=== PATIENT | female | born 1970 | race Caucasian/White ===

== ENCOUNTER 2020-04-29 00:18 | Emergency (ER) | payer BC, SELFPAY ==
--- NOTE | ~2020-04-29 | XR_ITS ---
EXAMINATION: XR chest 1V portable INDICATION: Fever and shortness of breath TECHNIQUE: Portable AP chest at 0136 hours COMPARISON: 03/19/2019 FINDINGS: There are minimal airspace opacities in the right lung base. No pleural effusion or pneumot horax is identified. The cardiomediastinal silhouette is normal. IMPRESSION: 1. Minimal right basilar airspace opacity, consistent with atelectasis versus pneumonia. Reviewed, dictated and finalized at location A. IMPRESSION: 1. Minimal right basilar airspace opacity, consistent with atelectasis versus p neumonia.
[2020-04-29 00:24] VITALS: BP 125/65; PULSE 91; RESP 24; TEMP 38.6; O2SAT 94
[2020-04-29 00:45] VITALS: RESP 26
[2020-04-29 01:52] LABS: Basophils Percent Auto 0.3 % (0.2-1.2); Hematocrit 39.1 % (37.0-47.0); Hemoglobin 13.3 g/dL (12.0-15.0); Immature Granulocyte Absolute 0.03 K/mm3 (0.00-0.031); Immature Granulocyte Percent A 0.4 % (0-0.5); Lymphocytes Percent Auto 16.6 % (18.3-44.2); Mean Corpuscular Hemoglobin 31.9 pg (26-34); Mean Corpuscular Volume 93.8 fl (80-100); Mean Platelet Volume 8.9 fl (7.4-10.4); Monocytes Absolute Auto 0.4 K/mm3 (0.1-0.6); Monocytes Percent Auto 5.8 % (2.6-8.5); Neutrophils Absolute Auto 5.6 K/mm3 (1.3-6.7); Neutrophils Percent Auto 76.9 % (45.5-73.1); Platelet Count Result 139 k/mm3 (150-375); Red Blood Count 4.17 M/mm3 (4.2-5.4); Red Cell Distribution Width 13.2 % (11.5-14.5); White Blood Count 7.3 K/mm3 (4.5-10.0)
[2020-04-29 02:04] LABS: Alanine Aminotransferase 28 U/L (4-35); Albumin Level 3.7 g/dL (3.5-5.1); Alkaline Phosphatase 89 U/L (38-126); Anion Gap 11 mmol/L (8-16); Aspartate Amino Transferase 30 U/L (14-36); Bilirubin,Total 0.5 mg/dL (0.2-1.3); Blood Urea Nitrogen 18 mg/dL (7-17); Calcium 8.9 mg/dL (8.4-10.2); Carbon Dioxide 25 mmol/L (22-30); Chloride 104 mmol/L (98-107); Estimated CRCL calculation 91 ml/min; Estimated Glomerular Filt Rate > 60; Glucose 216 mg/dL (65-105); Potassium 3.6 mmol/L (3.4-5.0); Sodium 140 mmol/L (137-145)
--- NOTE | 2020-04-29 02:36 | ED.FEVER ---
HPI - Fever General Chief Complaint: Fever Stated Complaint: sob, fever Time Seen by Provider: 04/29/20 01:00 History of Present Illness HPI Narrative: Patient is a 50-year-old female who presents the ER with fever and shortness of breath. Patient reports over the last 4 days she has been running a fever and has been short of breath. Associate with a dry nonproductive cough. No runny nose/sore throat. No known sick contacts. Scheduled to receive a Covid swab in the morning. She without nausea/vomiting. She has been using a nebulizer with mild improvement. Related Data Home Medications Medication Instructions Recorded Confirmed aspirin 81 mg tablet,delayed 81 mg PO DAILY 07/23/19 01/07/20 release cholecalciferol (vitamin D3) 50 2,000 unit PO DAILY cap 07/23/19 01/07/20 mcg (2,000 unit) capsule formoterol fumarate 20 mcg/2 mL 2 ml INHALATION BID 07/23/19 01/07/20 solution for nebulization magnesium 30 mg tablet 30 mg PO DAILY 07/23/19 01/07/20 omega-3 fatty acids 1,000 mg 1,000 mg PO DAILY 07/23/19 01/07/20 capsule potassium gluconate 595 mg (99 mg) 595 mg PO DAILY 07/23/19 01/07/20 tablet Allergies Allergy/AdvReac Type Severity Reaction Status Date / Time No Known Allergies Allergy Unknown NONE Unverified 04/29/20 00:21 Review of Systems Review of Systems: All systems reviewed & are unremarkable except as noted in HPI and below Constitutional: Constitutional: Reports chills, Reports fatigue and Reports fever(s) ENT: Denies nasal congestion and Denies sore throat Cardiovascular: Cardiovascular: Denies chest pain and Denies radiating jaw, neck or arm pain Respiratory: Respiratory: Reports cough, Reports dyspnea and Denies wheezing Gastrointestinal: Gastrointestinal: Denies abdominal pain, Denies nausea and Denies vomiting [facility] Past Medical History Medical History (Updated 04/29/20 @ 02:41 by Silvano Clakr MD) COPD (chronic obstructive pulmonary disease) Family History Family History Father Family history of alcoholism, Onset Age: 37 Mother Patient's mother is in good health Social History Social History Smoking status: Heavy tobacco smoker Alcohol intake: never Gender identity (if verbalized by the patient): Female Exam Narrative: Exam Narrative: GENERAL: Well-appearing, well-nourished, and in no acute distress. HEAD: Normocephalic, atraumatic. CHEST: Clear to auscultation. No respiratory distress. HEART: Regular rate and rhythm. Normal peripheral pulses. EXTREMITIES: Normal range of motion. No edema. SKIN: Warm, dry, no rash. NEURO: Alert and oriented x3. PSYCH: Normal mood and affect. Course STRUCTURER/PA Physician Supervision Chest x-ray suspicious for pneumonia right lower lobe. Discharge with [facility]. Covid swab here. Vital Signs Vital signs: Vital Signs Temperature 101.5 F H 04/29/20 00:24 Pulse Rate 91 04/29/20 00:24 Respiratory Rate 24 H 04/29/20 00:24 Blood Pressure 125/65 04/29/20 00:24 Pulse Oximetry 94 04/29/20 00:24 Temperature 101.5 F H 04/29/20 00:24 Pulse Rate 91 04/29/20 00:24 Respiratory Rate 24 H 04/29/20 00:24 Blood Pressure 125/65 04/29/20 00:24 Pulse Oximetry 94 04/29/20 00:24 MDM - Fever Lab Data Result diagrams: 04/29/20 01:44 04/29/20 01:44 Labs: Lab Results 04/29/20 04/29/20 04/29/20 Range/Units 01:44 01:44 01:44 WBC 7.3 (4.5-10.0) K/mm3 RBC 4.17 L (4.2-5.4) M/mm3 Hgb 13.3 (12.0-15.0) g/dL Hct 39.1 (37.0-47.0) % MCV 93.8 (80-100) fl MCH 31.9 (26-34) pg MCHC 34.0 (32-36) g/dl RDW 13.2 (11.5-14.5) % Plt Count 139 L (150-375) k/mm3 MPV 8.9 (7.4-10.4) fl Immature Gran % (Auto) 0.4 (0-0.5) % Neut % (Auto) 76.9 H (45.5-73.1) % Lymph % (Auto) 16.6 L (18.3-44.2) % [place] % (Auto) 5.8
[2020-04-29 02:50] VITALS: BP 129/66; PULSE 90; RESP 22; TEMP 37.9; O2SAT 94
[2020-04-29 15:24] LABS: SARS-CoV-2 RNA PCR Negative
== END 2020-04-29 02:50 | disposition home or self-care (01) ==
PROVIDERS: Emergency Provider Emergency Medicine; PCP Emergency Medicine
DX: J18.9 Pneumonia, unspecified organism (principal); Z20.828 Contact with and (suspected) exposure to other viral communicable diseases; J44.9 Chronic obstructive pulmonary disease, unspecified; Z79.82 Long term (current) use of aspirin; F17.200 Nicotine dependence, unspecified, uncomplicated
CPT/HCPCS: 36415; 71045; 80053; 85025; 87635; 99283; C9803; U0003

== ENCOUNTER → 2021-06-01 15:57 | Outpatient (CLI) | payer BC, SELFPAY ==
--- NOTE | ~2021-06-01 | MM_ITS ---
EXAMINATION: MM screening [facility] HISTORY: Screening TECHNIQUE: Craniocaudal and mediolateral oblique 3-D tomosynthesis images were obtained and synthetic 2-D images were generated. CAD analysis was submitted and interpreted. COMPARISON: Comparison to multiple prior studies sequentially, with oldest reviewed study dated 12/25. BREAST PARENCHYMAL COMPOSITION: Breast composed of scattered areas of fibroglandular density. FINDINGS: There is no evidence of suspicious mass, calcification, or architectural distortion to sugg est malignancy in either breast. There has been no suspicious interval change. IMPRESSION: 1. No mammographic evidence of malignancy. 2. Recommend routine screening mammography in one year. BI-RADS Category 1: Negative Reviewed, dictated and finalized at location A. [employer]
== END ==
PROVIDERS: PCP Nurse Practitioner Family; Visit Provider Nurse Practitioner Family
DX: Z12.31 Encounter for screening mammogram for malignant neoplasm of breast (principal)
CPT/HCPCS: 77063; 77067

== ENCOUNTER 2022-01-02 15:35 | Emergency (ER) | payer BC, SELFPAY ==
--- NOTE | ~2022-01-02 | CT_ITS ---
EXAMINATION: CT abdomen pelvis w con INDICATION: Urinary retention TECHNIQUE: Computed tomographic images of the abdomen and pelvis were obtained after the administrati on of 100 cc of Omnipaque 300 intravenous contrast. The dose-length product (DLP) was 823.31 mGy-cm. Automated exposure control and iterative reconstruction technique were employed. COMPARISON: 03/21/2019 FINDINGS: Minimal dependent atelectasis is present in the lung bases. The heart size is normal. The l iver is diffusely low in attenuation when compared with the spleen, consistent with hepatic steatosis . The spleen, pancreas, and adrenal glands are normal. Stones are present in the nondistended gallbla dder. There is a 3 mm nonobstructing stone of the right kidney. Cysts of the kidneys measure up to 9 mm on the right. No pathologically enlarged abdominal or pelvic lymph nodes are identified. There is no free intraperitoneal gas or evidence of bowel obstruction. The appendix is normal. There is calcif ied atherosclerosis of the aorta and many of the other arteries. IMPRESSION: 1. No CT correlate for the patient's symptoms. 2. Nonobstructing right nephrolithiasis. 3. Cholelithiasis. Reviewed, dictated and finalized at location B.
[2022-01-02 15:38] VITALS: BP 135/68; PULSE 75; RESP 18; TEMP 36.3; O2SAT 95
--- NOTE | 2022-01-02 16:03 | ED.FEMALEGU ---
HPI - Female Genitourinary General Chief complaint: Urogenital-Female Stated complaint: urinary retention Time Seen by Provider: 01/02/22 15:41 History of Present Illness HPI Narrative: 51-year-old female presents to the emergency room for evaluation for sudden urinary retention x1 week. Patient states that she is able to void, but it dribbles . Patient denies any suprapubic tenderness, does endorse fullness. Denies dysuria denies pain. Denies fever. Denies hematuria. Related Data Home Medications Medication Instructions Recorded Confirmed aspirin 81 mg tablet,delayed 81 mg PO DAILY 07/23/19 12/05/21 release magnesium 30 mg tablet 30 mg PO DAILY 07/23/19 12/05/21 omega-3 fatty acids 1,000 mg 1,000 mg PO DAILY 07/23/19 12/05/21 capsule (Fish Oil Concentrate) potassium gluconate 595 mg (99 mg) 595 mg PO DAILY 07/23/19 12/05/21 tablet mecobalamin (vitamin B12) PO 10/13/20 12/05/21 cholecalciferol (vitamin D3) 50 4,000 unit PO DAILY 02/16/21 12/05/21 mcg (2,000 unit) capsule naloxone intranasal 02/16/21 12/05/21 Allergies Allergy/AdvReac Type Severity Reaction Status Date / Time No Known Allergies Allergy Unknown NONE Verified 01/02/22 15:54 Review of Systems Review of Systems: CONSTITUTIONAL: Denies fever, chills, or sweats. EYES: Denies visual changes, redness, or discharge. ENT: Denies rhinorrhea, congestion, sore throat, or otalgia. CARDIOVASCULAR: Denies chest pain, palpitations, or edema. RESPIRATORY: Denies cough or dyspnea. GASTROINTESTINAL: Denies abdominal pain, nausea, vomiting, or diarrhea. GENITOURINARY: Reports urinary retention SKIN: Denies rash or itching. MUSCULOSKELETAL: Denies back pain, joint pain, or myalgia. NEUROLOGIC: Denies headache, numbness, dizziness, or weakness. PSYCHIATRIC: Denies anxiety or depression. 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 BMI 30.0-30.9,adult Breast cancer screening COPD (chronic obstructive pulmonary disease) GERD (gastroesophageal reflux disease) History of heart attack 2002 Hyperlipidemia Hypertension Neuropathy Vitamin D deficiency Family History Family History Father Family history of alcoholism, Onset Age: 37 Mother Patient's mother is in good health Social History Social History Smoking packs per day: 0.5 Smoking cigarettes per day: 10.0 Smoking status: Current every day smoker Tobacco type: cigarettes Alcohol intake: never Gender identity (if verbalized by the patient): Female Exam Narrative: GENERAL: Well-appearing, well-nourished, no physical limitations, and in no acute distress. HEAD: Normocephalic, atraumatic. EYES: Conjunctivae normal, PERRLA and EOMI. CHEST: Clear to auscultation. No respiratory distress. No wheezes rales or rhonchi. No tenderness. HEART: Regular rate and rhythm. No murmur heard. Normal peripheral pulses. ABDOMEN: Soft, suprapubic tenderness, nondistended, normal active bowel sounds. BACK: No CVA tenderness; EXTREMITIES: Normal range of motion. No edema. No clubbing or cyanosis SKIN: Warm, dry, no rash. No noted wounds NEURO: No focal deficits. Alert and oriented x3. MAEW. CN's II-XI intact bilaterally, normal gait PSYCH: Cooperative. Normal mood and affect. Course Course Emergency Course: 1819: Prevoid bladder scan result was 450. Post void bladder scan was 150. Vital Signs Vital signs: Vital Signs Temperature 36.3 C L 01/02/22 15:38 Pulse Rate 75 01/02/22 15:38 Respiratory Rate 18 01/02/22 15:38 Blood Pressure 135/68 01/02/22 15:38 Pulse Oximetry 95 01/02/22 15:38 Oxygen Delivery
[2022-01-02 16:05] LABS: Appearance Urine Clear (Clear); Bilirubin Urine 1+ (Negative); Blood Urine Negative (Negative); Color Urine Yellow (Yellow); Glucose Urine UA Negative (Negative); Ketones Urine Trace mg/dL (Negative); Leukocyte Esterase Ur Negative LEU/UL (Negative); Nitrate Urine Negative (Negative); Protein Urine Trace mg/dL (Negative); Specific Grav Ur >= 1.030 (1.001-1.035); Urobilinogen Urine 0.2 mg/dL (<2.0)
[2022-01-02 16:12] LABS: Bacteria Urine Trace /hpf; Mucus Urine Few /lpf; RBC Urine 21-50 /hpf (0-2); Squamous Epithelial Cell Urine Many /hpf (Few)
[2022-01-02 16:14] LABS: Add Urine Microscopic? YES
[2022-01-02] MEDS: SODIUM CHLORIDE 0.9% IV 1,000 ML 999 ML IV CONT (16:22)
[2022-01-02 16:28] LABS: Basophils Absolute Auto 0.1 K/mm3 (0.0-0.1); Basophils Percent Auto 0.6 % (0.2-1.2); Eosinophils Absolute Auto 0.1 K/mm3 (0-0.3); Eosinophils Percent Auto 1.3 % (0-4.4); Hemoglobin 14.2 g/dL (12.0-15.0); Immature Granulocyte Absolute 0.02 K/mm3 (0.00-0.031); Immature Granulocyte Percent A 0.2 % (0-0.5); Lymphocytes Absolute Auto 3.43 K/mm3 (0.9-3.2); Lymphocytes Percent Auto 38.2 % (18.3-44.2); Mean Corpuscular HGB Conc 33.8 g/dl (32-36); Mean Corpuscular Hemoglobin 31.8 pg (26-34); Mean Corpuscular Volume 94.2 fl (80-100); Monocytes Absolute Auto 0.5 K/mm3 (0.1-0.6); Monocytes Percent Auto 5.5 % (2.6-8.5); Neutrophils Absolute Auto 4.9 K/mm3 (1.3-6.7); Neutrophils Percent Auto 54.2 % (45.5-73.1); Platelet Count Result 219 k/mm3 (150-375); Red Blood Count 4.46 M/mm3 (4.2-5.4); Red Cell Distribution Width 13.3 % (11.5-14.5)
[2022-01-02 16:37] LABS: Alanine Aminotransferase 23 U/L (6-35); Albumin Level 4.1 g/dL (3.5-5.1); Alkaline Phosphatase 123 U/L (38-126); Anion Gap 7 mmol/L (8-16); Aspartate Amino Transferase 19 U/L (14-36); Bilirubin,Total 0.1 mg/dL (0.2-1.3); Blood Urea Nitrogen 19 mg/dL (7-17); Calcium 9.1 mg/dL (8.4-10.2); Carbon Dioxide 26 mmol/L (22-30); Chloride 108 mmol/L (98-107); Estimated CRCL calculation 89 ml/min; Estimated Glomerular Filt Rate > 60; Glucose 197 mg/dL (65-110); Potassium 3.6 mmol/L (3.4-5.0); Sodium 141 mmol/L (137-145)
[2022-01-02 18:53] VITALS: BP 140/69; PULSE 70; RESP 16; O2SAT 97
== END 2022-01-02 18:54 | disposition home or self-care (01) ==
PROVIDERS: Emergency Provider Nurse Practitioner Family; PCP Nurse Practitioner Family
DX: R33.9 Retention of urine, unspecified (principal); I25.10 Atherosclerotic heart disease of native coronary artery without angina pectoris; E78.5 Hyperlipidemia, unspecified; I10 Essential (primary) hypertension; J44.9 Chronic obstructive pulmonary disease, unspecified; F17.210 Nicotine dependence, cigarettes, uncomplicated
CPT/HCPCS: 36415; 74177; 80053; 81001; 85025; 87086; 96360; 99284; J7030; Q9967

== ENCOUNTER 2022-01-30 16:20 | Emergency (ER) | payer BC, SELFPAY ==
--- NOTE | ~2022-01-30 | XR_ITS ---
XR wrist LT min 3V DATE: 01/30/2022 16:55 INDICATION: Left wrist pain. No injury. TECHNIQUE: 4 views COMPARISON: None FINDINGS: No recent fracture or dislocation, periosteal reaction or bone destruction, erosive change or chondrocalcinosis. IMPRESSION: No significant abnormality Reviewed, dictated and finalized at location B. IMPRESSION: No significant abnormality
[2022-01-30 16:31] VITALS: BP 105/49; PULSE 74; RESP 24; TEMP 37.3; O2SAT 94
--- NOTE | 2022-01-30 16:48 | ED.EXTPRO ---
HPI - Extremity Problem General Chief complaint: Extremity Problem,Nontraumatic Stated complaint: Lt Wrist Pain Time Seen by Provider: 01/30/22 16:48 History of Present Illness HPI Narrative: Juliana Ricardo is a 51 yo female with a PMH of heart stents, hypertension, high cholesterol, diabetes, [facility] of left wrist pain without injury. She states that when she puts pressure on her wrist or tries to supinate her wrist that there is pain on the left and feels like the only time it really stops her is when she applies ice and elevates. States when she uses wrist a lot repetitive pain shoots up her lower forearm She is on multiple meds her blood pressure is low today; states she was seen by her physician that prescribes his medications in the last 2 months. Is taking many medication for multiple comorbidities Related Data Home Medications Medication Instructions Recorded Confirmed aspirin 81 mg tablet,delayed 81 mg PO DAILY 07/23/19 01/30/22 release magnesium 30 mg tablet 30 mg PO DAILY 07/23/19 01/30/22 omega-3 fatty acids 1,000 mg 1,000 mg PO DAILY 07/23/19 01/30/22 capsule (Fish Oil Concentrate) potassium gluconate 595 mg (99 mg) 595 mg PO DAILY 07/23/19 01/30/22 tablet cholecalciferol (vitamin D3) 50 4,000 unit PO DAILY 02/16/21 01/30/22 mcg (2,000 unit) capsule naloxone intranasal 02/16/21 12/05/21 Allergies Allergy/AdvReac Type Severity Reaction Status Date / Time No Known Allergies Allergy Unknown NONE Verified 01/30/22 16:31 Review of Systems Review of Systems: CONSTITUTIONAL: Denies fever, chills, sweats. EYES: Denies visual changes, redness, discharge. ENT: Denies rhinorrhea, congestion, sore throat, otalgia. CARDIOVASCULAR: Denies chest pain, palpitations, edema. RESPIRATORY: Denies dyspnea, wheezing, cough GASTROINTESTINAL: Denies abdominal pain, nausea, vomiting, diarrhea. GENITOURINARY: Denies dysuria, hematuria, abnormal discharge SKIN: Denies rash or itching. NEUROLOGIC: Denies numbness, or focal weakness. PSYCHIATRIC: Denies anxiety or depression. 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 BMI 30.0-30.9,adult Breast cancer screening COPD (chronic obstructive pulmonary disease) GERD (gastroesophageal reflux disease) History of heart attack 2002 Hyperlipidemia Hypertension Neuropathy Vitamin D deficiency Family History Family History Father Family history of alcoholism, Onset Age: 37 Mother Patient's mother is in good health Social History Social History Smoking packs per day: 0.5 Smoking cigarettes per day: 10.0 Smoking status: Current every day smoker Tobacco type: cigarettes Alcohol intake: never Gender identity (if verbalized by the patient): Female Comments At time of signature, I agree with nursing past medical, surgical, social and family history. There is no relevant family history pertinent to the presenting complaint. Exam Narrative: GENERAL: This is a well-nourished, well-developed patient, in mild distress. HEAD: normocephalic, atraumatic. EYES: Sclera clear/white. Vision is grossly intact. EARS: External ears normal. Hearing grossly intact. NOSE: External nose normal without nasal discharge, nares without redness, no rhinorrhea. THROAT: Mucous membranes moist, NECK: Neck supple, non-tender CARDIOVASCULAR: Regular rate and rhythm without murmurs, gallops, or rubs. RESPIRATORY: Clear to auscultation. Breath sounds equal bilaterally. No wheezes, rales, or rhonchi. GASTROINTESTINAL: Not done SKIN:
== END 2022-01-30 17:12 | disposition home or self-care (01) ==
PROVIDERS: Emergency Provider Nurse Practitioner; PCP Nurse Practitioner Family
DX: M25.532 Pain in left wrist (principal); F17.210 Nicotine dependence, cigarettes, uncomplicated; I25.10 Atherosclerotic heart disease of native coronary artery without angina pectoris; J44.9 Chronic obstructive pulmonary disease, unspecified; K21.9 Gastro-esophageal reflux disease without esophagitis; E78.5 Hyperlipidemia, unspecified; I10 Essential (primary) hypertension; G62.9 Polyneuropathy, unspecified; E55.9 Vitamin D deficiency, unspecified; Z79.82 Long term (current) use of aspirin
CPT/HCPCS: 73110; 99213; G0463

== ENCOUNTER 2022-03-17 10:24 | Emergency (ER) | payer BC, SELFPAY ==
--- NOTE | ~2022-03-17 | XR_ITS ---
EXAMINATION: XR ankle LT min 3V DATE: 03/17/2022 10:43 INDICATION: Left ankle pain. Injury. TECHNIQUE: 4 views of left ankle were obtained. COMPARISON: None. FINDINGS: Bone alignment is normal. No fracture. Joint spaces are well maintained. There are enthesop hytes at the posterior and plantar aspects of calcaneal tuberosity. IMPRESSION: 1. No fracture. Reviewed, dictated and finalized at location A. IMPRESSION: 1. No fracture.
[2022-03-17 10:35] VITALS: BP 123/57; PULSE 73; RESP 18; TEMP 36.9; O2SAT 98
--- NOTE | 2022-03-17 11:01 | ED.LOWEXIN ---
HPI - Extremity Injury (Lower) General Stated Complaint: lt ankle injury Time Seen by Provider: 03/17/22 10:28 Source: patient Mode of arrival: ambulatory Limitations: no limitations History of Present Illness HPI Narrative: 52-year-old female presents to [facility] with complaints of pain and mild swelling to the medial aspect of her left ankle for the past 3 days. Patient reports that she was seen in her kitchen when she twisted her left ankle. Patient reports that the pain was improving but then became worse last night. Patient has been applying ice to the area with little relief. Patient denies erythema, warmth, numbness or tingling. Patient denies ankle sprain or fracture in the past. MD complaint: ankle injury Onset (ago): day(s) (3) Injury: Left: ankle Type of Injury: inversion Place: home Other symptoms: none Treatments prior to arrival: cold therapy Related Data Home Medications Medication Instructions Recorded Confirmed aspirin 81 mg tablet,delayed 81 mg PO DAILY 07/23/19 02/04/22 release magnesium 30 mg tablet 30 mg PO DAILY 07/23/19 02/04/22 omega-3 fatty acids 1,000 mg 1,000 mg PO DAILY 07/23/19 02/04/22 capsule (Fish Oil Concentrate) potassium gluconate 595 mg (99 mg) 595 mg PO DAILY 07/23/19 02/04/22 tablet cholecalciferol (vitamin D3) 50 4,000 unit PO DAILY 02/16/21 02/04/22 mcg (2,000 unit) capsule Allergies Allergy/AdvReac Type Severity Reaction Status Date / Time No Known Allergies Allergy Unknown NONE Verified 02/04/22 08:59 Review of Systems Constitutional: Constitutional: Denies chills, Denies fatigue, Denies fever(s) and Denies weakness ENT: Denies dizziness Respiratory: Respiratory: Denies chest congestion, Denies cough, Denies dyspnea and Denies wheezing Gastrointestinal: Gastrointestinal: Denies abdominal pain, Denies diarrhea, Denies nausea and Denies vomiting Musculoskeletal: Musculoskeletal: Reports arthralgias and Reports joint swelling Integumentary/Breasts: Skin/Breast: Denies rash Neurologic: Denies dizziness PMFSH Past Medical History Medical History 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 BMI 30.0-30.9,adult Breast cancer screening COPD (chronic obstructive pulmonary disease) Elbow tendonitis GERD (gastroesophageal reflux disease) History of anesthesia complications Difficulty waking up after History of heart attack 2002 w/stent placement Hyperlipidemia Hypertension Neuropathy Vitamin D deficiency Family History Family History Father Family history of alcoholism, Onset Age: 37 Mother Patient's mother is in good health Social History Social History Smoking packs per day: 0.5 Smoking cigarettes per day: 10.0 Smoking status: Current every day smoker Tobacco type: cigarettes Alcohol intake: never Gender identity (if verbalized by the patient): Female Comments At time of signature, I agree with nursing past medical, surgical, social and family history. There is no relevant family history pertinent to the presenting complaint. Exam Const: General: healthy appearing Nutritional Appearance: well nourished Orientation/consciousness: patient oriented x3 Limitations: no limitations Eyes: Conjunctivae: conjunctivae normal Neck: Neck: normal visual inspection Resp: Effort & Inspection: normal respiratory effort and not labored Auscultation: clear to auscultation bilaterally, no crackles, no rales, no rhonchi and no wheezes Cardio: Rate: regular rate Rhythm: regular rhythm Heart sounds: no murmurs Skin: General skin exam: normal color Rashes: no rashes Wounds: no wounds Neuro: Gener
[2022-03-17 11:15] VITALS: BP 119/60; PULSE 67
== END 2022-03-17 11:15 | disposition home or self-care (01) ==
PROVIDERS: Emergency Provider Nurse Practitioner Family; PCP Nurse Practitioner Family
DX: S93.402A Sprain of unspecified ligament of left ankle, initial encounter (principal); X50.9XXA Other and unspecified overexertion or strenuous movements or postures, initial encounter; F17.210 Nicotine dependence, cigarettes, uncomplicated; I25.10 Atherosclerotic heart disease of native coronary artery without angina pectoris; J44.9 Chronic obstructive pulmonary disease, unspecified; K21.9 Gastro-esophageal reflux disease without esophagitis; I25.2 Old myocardial infarction; E78.5 Hyperlipidemia, unspecified; I10 Essential (primary) hypertension; E55.9 Vitamin D deficiency, unspecified
CPT/HCPCS: 73610; 99213; G0463

== ENCOUNTER 2022-06-03 08:21 | Outpatient (CLI) | payer BC, SELFPAY ==
--- NOTE | ~2022-06-03 | CT_ITS ---
EXAMINATION: CT lung screening DATE: 06/03/2022 08:43 INDICATION: Lung cancer screening TECHNIQUE: Computed tomography (CT) of the chest was performed without intravenous contrast. The dose -length product was 114.44 mGy-cm. Automated exposure control and iterative reconstruction technique were employed. COMPARISON: None FINDINGS: No thoracic lymphadenopathy. No significant pleural or pericardial effusion. There is ather osclerosis of the aorta and coronary arteries. The upper abdomen is unremarkable. No endobronchial le sions. There is a 3 mm right upper lobe nodule, image 62. There is a 4 mm right middle lobe nodule, i mage 78. No endobronchial lesions. No pneumothorax. No focal airspace consolidation. IMPRESSION: 1. Lung-RADS category 2: Benign appearance or behavior. Continue annual screening with noncontrast lo w-dose chest CT in 12 months. Reviewed, dictated and finalized at location A. 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 Lung-RADS category 2: Benign appearance or behavior. Continue annual screeni ng with noncontrast low-dose chest CT in 12 months.
== END 2022-06-03 08:22 | disposition home or self-care (01) ==
PROVIDERS: PCP Nurse Practitioner Family; Visit Provider Physician Assistant
DX: Z12.2 Encounter for screening for malignant neoplasm of respiratory organs (principal); F17.210 Nicotine dependence, cigarettes, uncomplicated
CPT/HCPCS: 71271

== ENCOUNTER → 2022-08-31 09:45 | Outpatient (CLI) | payer BC, SELFPAY ==
--- NOTE | ~2022-08-31 | MM_ITS ---
EXAMINATION: MM screening jules BI w kayley HISTORY: Screening mammogram TECHNIQUE: Craniocaudal and mediolateral oblique 3-D tomosynthesis images were obtained and synthetic 2-D images were generated. CAD analysis was submitted and interpreted. COMPARISON: 06/01/2021, 06/04/2019, 07/28/2017 BREAST PARENCHYMAL COMPOSITION: There are scattered areas of fibroglandular density. FINDINGS: There is a stable left breast mass with biopsy change. No suspicious mass, calcification, o r architectural distortion are identified in either breast to suggest malignancy. There has been no s uspicious interval change. IMPRESSION: 1. No mammographic evidence of malignancy. 2. Recommend routine screening mammography in one year. BI-RADS Category 2: Benign finding(s). Reviewed, dictated and finalized at location A. ESS HOST
== END ==
PROVIDERS: PCP Nurse Practitioner Family; Visit Provider Nurse Practitioner Family
DX: Z12.31 Encounter for screening mammogram for malignant neoplasm of breast (principal)
CPT/HCPCS: 77063; 77067

== ENCOUNTER 2022-11-18 13:13 | Outpatient (CLI) | payer BC, SELFPAY ==
--- NOTE | ~2022-11-18 | US_ITS ---
EXAMINATION:US venous doppler LE BI INDICATION:Polyneuropathy TECHNIQUE: Multiple grayscale, color flow and Doppler images of the right and left lower extremity de ep venous systems were obtained and reviewed. COMPARISON:No prior studies for comparison. FINDINGS: The common femoral, superficial femoral and popliteal veins demonstrate normal respiratory variation, augmentation and compressibility. Color flow is also seen within the posterior tibial, pe roneal, greater saphenous and profunda veins. IMPRESSION: 1: No lower extremity deep venous thrombosis. Reviewed, dictated and finalized at location B.
--- NOTE | ~2022-11-18 | US_ITS ---
US art doppler w press LE BI INDICATION: Polyneuropathy TECHNIQUE: Segmental pressures and plethysmographic and Doppler waveforms of the brachial and lower e xtremity arteries were obtained. COMPARISON: None. FINDINGS: Right and left brachial artery pressures of 116 mm Hg and 122 mm Hg, respectively, are concordant (no rmal difference <= 30 mmHg). The right ankle-brachial index (AIDA) is 1.11 (normal >= 0.9-1.0). The right great toe-brachial index (TBI) is 0.4 (normal >= 0.60). The left AIDA is 1.03. The left TBI is 0.64. IMPRESSION: 1. Normal left AIDA and TBI measurements. 2: Normal right ankle-brachial index. Decreased left toe brachial index measuring 0.4, consistent wi th peripheral arterial disease. Reviewed, dictated and finalized at location B. IMPRESSION: 1. Normal left AIDA and TBI measurements. 2: Normal right ankle-brachial index. Decreased left toe brachial index measur ing 0.4, consistent with peripheral arterial disease.
== END 2022-11-18 13:14 | disposition home or self-care (01) ==
PROVIDERS: PCP Nurse Practitioner Family; Visit Provider Nurse Practitioner Family
DX: G62.9 Polyneuropathy, unspecified (principal)
CPT/HCPCS: 93923; 93970

== ENCOUNTER → 2023-02-25 12:31 | Outpatient (CLI) | payer BC, SELFPAY ==
--- NOTE | ~2023-02-25 | XR_ITS ---
EXAM: XR abdomen/kub 1V DATE: 02/25/2023 12:47 HISTORY: RIGHT KIDNEY STONE . COMPARISON: CT abdomen pelvis 01/02/2022. FINDINGS: Clear lung bases. Normal bowel gas pattern. No organomegaly. No abnormal abdominal calcifi cation. Pelvic enthesopathy. Mild degenerative changes in the bilateral hips and pubic symphysis. IMPRESSION: Unremarkable abdominal radiograph findings. Reviewed, dictated and finalized at location K.
--- NOTE | ~2023-02-25 | US_ITS ---
Renal-Bladder ultrasound Clinical History: Right renal stone Technique: Real-time sonographic imaging of the kidneys and urinary bladder was performed. Findings: The right kidney measures 11.3 cm in length and the left kidney measures 10.4 cm. There is no hydronephrosis or renal calculus identified. Renal cortical echogenicity is within normal limits. Small right renal cyst noted. The urinary bladder is moderately distended at the time of this exam. No intraluminal echoes are iden tified. No abnormal wall thickening is seen. Impression: No significant abnormality seen. Reviewed, dictated and finalized at location . Impression: No significant abnormality seen.
== END ==
PROVIDERS: PCP Nurse Practitioner Family; Visit Provider Nurse Practitioner Adult Health
DX: N20.0 Calculus of kidney (principal)
CPT/HCPCS: 74018; 76770

== ENCOUNTER 2023-06-02 09:47 | Outpatient (CLI) | payer BC, SELFPAY ==
--- NOTE | ~2023-06-02 | CT_ITS ---
CT Scan of the Chest without Contrast: Clinical Indication: Lung cancer screening, personal history of nicotine dependence Technique: Contiguous sections were acquired throughout the chest without intravenous contrast. Dose reduction technique was used on this scan by utilizing automated exposure control and iterative recon struction technique. The dose-length product (DLP) was 91.38 mGy-cm. COMPARISON: 06/03/2022 Findings: There is no evidence of any significant mediastinal, hilar or axillary lymphadenopathy. Coronary teodoro ry calcifications are present. There is no evidence of pleural or pericardial effusion. Stable 3 mm right upper lobe pulmonary nodule noted. Suspected minimal patchy ground glass opacities are noted in the right upper lobe and right lower lobe. There is irregular nodularity in the inferior right middle lobe, suggestive of pneumonia. Images through the upper abdomen reveal no abnormalities. Impression: Lung RADS 4A: Suspicious. 3 month follow-up CT recommended. Irregular patchy nodularity inferior right middle lobe, with minimal patchy groundglass opacities in the right upper and lower lobes. Appearance is most suggestive of pneumonia. As these are new interva l findings, 3 month follow-up CT recommended, as above. Reviewed, dictated and finalized at location M. OR ESTABLISHMENT MANAGER Impression: Lung RADS 4A: Suspicious. 3 month follow-up CT recommended. Irregular patchy nodularity inferior right middle lobe, with minimal patchy perla undglass opacities in the right upper and lower lobes. Appearance is most sugge stive of pneumonia. As these are new interval findings, 3 month follow-up CT re commended, as above.
== END 2023-06-02 09:48 | disposition home or self-care (01) ==
PROVIDERS: PCP Nurse Practitioner Family; Visit Provider Nurse Practitioner Family
DX: Z12.2 Encounter for screening for malignant neoplasm of respiratory organs (principal); Z87.891 Personal history of nicotine dependence; R93.89 Abnormal findings on diagnostic imaging of other specified body structures
CPT/HCPCS: 71271

== ENCOUNTER 2023-06-17 20:29 | Observation (INO) | payer BC, SELFPAY ==
[2023-06-17] VITALS (9 sets, daily range): BP systolic 145–155; BP diastolic 68–83; PULSE 92–97; RESP 16–33; TEMP 37.4–37.6; O2SAT 91–95
--- NOTE | ~2023-06-17 | XR_ITS ---
EXAMINATION: XR chest 2V DATE: 06/17/2023 21:12 INDICATION: Chest pain. TECHNIQUE: Frontal and lateral views of the chest were obtained. COMPARISON: Chest single view 04/29/2020, chest 2 views 03/19/2019 FINDINGS: There is no pneumonia, pleural effusion, or pneumothorax. The heart size is normal. There i s mild chronic anterior wedging of multiple vertebral bodies. IMPRESSION: 1. No acute cardiopulmonary disease. Reviewed, dictated and finalized at location E. UCTION SPECIALIST
--- NOTE | 2023-06-17 20:40 | ECG_ITS ---
Measurements Intervals [place] Rate: 93 P: 5 MS: 183 QRS: -23 QRSD: 84 T: 73 QT: 345 QTc: 429 Interpretive Statements SINUS RHYTHM LOW QRS VOLTAGE IN PRECORDIAL LEADS [QRS DEFLECTION < 1.0 mV IN CHEST LEADS] SEPTAL MYOCARDIAL INFARCTION , OF INDETERMINATE AGE [40+ ms Q WAVE IN V1/V2] ABNORMAL ECG COMPARED TO ECG 03/19/2019 07:38:37 MYOCARDIAL INFARCT FINDING NOW PRESENT Electronically Signed On 06-18-2023 15:37:49 STEEL BOX TOE INSERTER by Nick Oliva M.D.
[2023-06-17 21:16] LABS: Basophils Percent Auto 0.5 % (0.2-1.2); Eosinophils Absolute Auto 0.1 K/mm3 (0-0.3); Eosinophils Percent Auto 0.6 % (0-4.4); Hematocrit 46.6 % (37.0-47.0); Hemoglobin 14.8 g/dL (12.0-15.0); Immature Granulocyte Absolute 0.04 K/mm3 (0.00-0.031); Immature Granulocyte Percent A 0.5 % (0-0.5); Immature Platelet Fraction Pct 1.2 % (0.9-11.2); Lymphocytes Absolute Auto 1.04 K/mm3 (0.9-3.2); Lymphocytes Percent Auto 12.1 % (18.3-44.2); Mean Corpuscular HGB Conc 31.8 g/dl (32-36); Mean Corpuscular Hemoglobin 30.5 pg (26-34); Mean Corpuscular Volume 96.1 fl (80-100); Mean Platelet Volume 8.8 fl (7.4-10.4); Monocytes Absolute Auto 0.5 K/mm3 (0.1-0.6); Monocytes Percent Auto 5.8 % (2.6-8.5); Neutrophils Absolute Auto 6.9 K/mm3 (1.3-6.7); Neutrophils Percent Auto 80.5 % (45.5-73.1); Platelet Count Result 243 k/mm3 (150-375); Red Blood Count 4.85 M/mm3 (4.2-5.4); Red Cell Distribution Width 13.4 % (11.5-14.5); White Blood Count 8.6 K/mm3 (4.5-10.0)
[2023-06-17 21:25] LABS: Alanine Aminotransferase 27 U/L (6-35); Albumin Level 4.1 g/dL (3.5-5.1); Alkaline Phosphatase 115 U/L (38-126); Anion Gap 10 mmol/L (8-16); Aspartate Amino Transferase 22 U/L (14-36); Bilirubin,Total 0.4 mg/dL (0.2-1.3); Blood Urea Nitrogen 17 mg/dL (7-17); Calcium 9.1 mg/dL (8.4-10.2); Carbon Dioxide 25 mmol/L (22-30); Chloride 105 mmol/L (98-107); Estimated CRCL calculation 66 ml/min; Estimated Glomerular Filt Rate > 60; Glucose 195 mg/dL (65-110); Lipase 109 U/L (23-300); Sodium 140 mmol/L (137-145)
[2023-06-17 21:28] LABS: Partial Thromboplastin Time 26.9 SECONDS (22.3-36.8)
[2023-06-17 21:42] LABS: Troponin I 0.054 ng/mL (0.000-0.034)
[2023-06-17] MEDS: ASPIRIN 81 MG CHEWABLE TABLET 324 MG PO (21:46)
--- NOTE | 2023-06-17 22:02 | ED.GENADULT ---
HPI - General Adult General Chief complaint: Chest Pain Stated complaint: chest pain Time Seen by Provider: 06/17/23 21:11 History of Present Illness HPI narrative: patient is a 53-year-old female who presents to emergency department with chief complaint of chest pain. Patient states around 5:00 p.m. started having pain in the middle portion of her chest felt like pressure or like a bruise. The patient states felt little nauseated with this and decided to come to the hospital as she pulled up in the parking lot of the emergency department she reports the pain resolved the patient states currently she has no pain she did report an episode on Friday that she was walking up steps and had chest pain that developed resolved once she stopped doing physical activity. Patient reports that she had a [place] in the past has [address] Mayfield the past for Cardiology Related Data Home Medications Medication Instructions Recorded Confirmed aspirin 81 mg tablet,delayed 81 mg PO DAILY 07/23/19 04/11/23 release omega-3 fatty acids 1,000 mg 1,000 mg PO DAILY 07/23/19 04/11/23 capsule (Fish Oil Concentrate) potassium gluconate 595 mg (99 mg) 595 mg PO DAILY 07/23/19 04/11/23 tablet cholecalciferol (vitamin D3) 50 4,000 unit PO DAILY 02/16/21 04/11/23 mcg (2,000 unit) capsule mecobalamin (vitamin B12) PO 12/06/22 04/11/23 duloxetine 30 mg capsule,delayed 30 mg PO DAILY 02/18/23 04/11/23 release Allergies Allergy/AdvReac Type Severity Reaction Status Date / Time No Known Allergies Allergy Unknown NONE Verified 04/11/23 08:54 Review of Systems Review of Systems: A 10 system review of systems was completed on the patient and is negative except for what is stated in the HPI. Nursing and ancillary documentation was reviewed. [facility] Past Medical History Medical History Atherosclerotic heart disease of [place] coronary artery without angina pectoris (06/11/12) acute posterior lateral [place] with occlusion of the posterior lateral branch of the RCA stented with drug-eluting stent. BMI 30.0-30.9,adult BMI 31.0-31.9,adult Breast cancer screening Chronic pain COPD (chronic obstructive pulmonary disease) Dysuria Elbow tendonitis GERD (gastroesophageal reflux disease) History of anesthesia complications Difficulty waking up after History of heart attack 2002 w/stent placement Hyperlipidemia Hypertension Neuropathy Peripheral neuropathy Small fiber neuropathy Vitamin D deficiency Family History Family History Father Family history of alcoholism, Onset Age: 37 Mother Patient's mother is in good health Social History Social History Smoking packs per day: 0.5 Smoking cigarettes per day: 10.0 Smoking status: Current every day smoker Tobacco type: cigarettes Alcohol intake: never Substance use: never Substance use type: does not use Lack of Transportation: No Lack of Food: Never True Current Housing: I Have Housing Concerned About Future Housing: No Difficulty Paying Gas/Electric Bills: No Difficulty Paying for Meds: No Currently Unemployed: No Education: Bachelor's Degree Difficulty w/ Childcare or Family Care: No Gender identity (if verbalized by the patient): Female Exam Narrative: GENERAL: Well-appearing, well-nourished, and in no acute distress. HEAD: Normocephalic, atraumatic. EYES: PERRLA and EOMI. ENT: Nares clear, no rhinorrhea or epistaxis. Mucous membranes moist. NECK: Supple. CHEST: Clear to auscultation. No respiratory distress. HEART: Regular rate and rhythm. No murmur heard. Normal peripheral pulses. ABDOMEN: Soft, nontender, nondistended, normal active bowel sounds. EXTREMITIES: Normal range of motion. No edema. SKIN: Warm, dry, no rash. NEURO: No focal
--- NOTE | 2023-06-17 22:04 | ECG_ITS ---
Measurements Intervals [place] Rate: 93 P: 20 HI: 179 QRS: -17 QRSD: 80 T: 41 QT: 353 QTc: 441 Interpretive Statements BORDERLINE ECG SINUS RHYTHM LOW QRS VOLTAGE IN PRECORDIAL LEADS [QRS DEFLECTION < 1.0 mV IN CHEST LEADS] CANNOT RULE OUT SEPTAL INFARCT NONSPECIFIC T-WAVE ABNORMALITY ABNORMAL ECG COMPARED TO ECG 06/17/2023 22:09:55 NO SIGNIFICANT CHANGES Electronically Signed On 06-18-2023 15:40:29 ROOM SERVICE ATTENDANT by Nick Oliva M.D.
[2023-06-17] MEDS: NITROGLYCERIN SL 0.4 MG TABLET SUBLINGUAL (22:09)
--- NOTE | 2023-06-17 22:16 | PC.NURSE ---
pt had relief after one nitro, so no further doses were given. pt did get a headache after administration.
--- NOTE | 2023-06-17 22:18 | PC.NURSE ---
Per EDP Dr. Darden hold off on metoprolol.
--- NOTE | 2023-06-17 23:40 | ECG_ITS ---
Measurements Intervals [place] Rate: 95 P: 81 MS: 178 QRS: 4 QRSD: 77 T: 69 QT: 339 QTc: 427 Interpretive Statements SINUS RHYTHM BASELINE ARTIFACT NONSPECIFIC ST & T-WAVE ABNORMALITY CANNOT RULE OUT SEPTAL INFARCT AGE INDETERMINATE ABNORMAL ECG COMPARED TO ECG 06/17/2023 20:51:44 T-WAVE ABNORMALITY NOW PRESENT Electronically Signed On 06-18-2023 15:38:58 RESIDENTIAL INSTRUCTOR by Nick Oliva M.D.
[2023-06-18] VITALS (41 sets, daily range): BP systolic 121–159; BP diastolic 49–83; PULSE 71–98; RESP 16–29; TEMP 36.2–37.2; O2SAT 83–100; BMI 29.8
--- NOTE | 2023-06-18 02:29 | PM.IMHP ---
H&P: HPI History of Present Illness Date/Time: 06/18/23 02:29 Chief Complaint: chest pain Narrative: This is a 73-year-old female with past medical history significant for coronary artery disease status post stent placement remote history, tobacco dependence, COPD/emphysema, type diabetes mellitus, hypertension. Patient presents to the emergency room due to retrosternal chest pain with radiation bilaterally to shoulders rate set at 5 to 6/10 in intensity, at the time of my visit denied any pain, has been her usual state of health for the most part, no nausea, no vomiting, no diarrhea, no fevers no rigors no chills has had constipation, no shortness of breath, no wheezing, no leg swelling, no PND, no orthopnea. Preliminary workup was significant for troponins elevation. EXAMINATION: XR chest 2V DATE: 06/17/2023 21:12 INDICATION: Chest pain. TECHNIQUE: Frontal and lateral views of the chest were obtained. COMPARISON: Chest single view 04/29/2020, chest 2 views 03/19/2019 FINDINGS: There is no pneumonia, pleural effusion, or pneumothorax. The heart size is normal. There is mild chronic anterior wedging of multiple vertebral bodies. IMPRESSION: 1. No acute cardiopulmonary disease. Review of Systems Review of Systems: chest pain retrosternal with radiation bilaterally to shoulders PMFSH Past Medical History Medical History Atherosclerotic heart disease of [place] coronary artery without angina pectoris (06/11/12) acute posterior lateral [place] with occlusion of the posterior lateral branch of the RCA stented with drug-eluting stent. BMI 30.0-30.9,adult BMI 31.0-31.9,adult Breast cancer screening Chronic pain COPD (chronic obstructive pulmonary disease) Dysuria Elbow tendonitis GERD (gastroesophageal reflux disease) History of anesthesia complications Difficulty waking up after History of heart attack 2002 w/stent placement Hyperlipidemia Hypertension Neuropathy Peripheral neuropathy Small fiber neuropathy Vitamin D deficiency Family History Family History Father Family history of alcoholism, Onset Age: 37 Mother Patient's mother is in good health Social History Social History Smoking packs per day: 0.5 Smoking cigarettes per day: 10.0 Years smoked: 36 Smoking pack-years: 18.00 Smoking status: Current every day smoker Tobacco type: cigarettes Alcohol intake: never Substance use: never Substance use type: does not use Do You Feel Safe in your Home?: Yes Lack of Transportation: No Lack of Food: Never True Current Housing: I Have Housing Concerned About Future Housing: No Difficulty Paying Gas/Electric Bills: No Difficulty Paying for Meds: No Currently Unemployed: No Education: Decline to Answer Difficulty w/ Childcare or Family Care: No Gender identity (if verbalized by the patient): Female Spiritual care concerns: No Meds Home Medications and Allergies Home Medications Medication Instructions Recorded Confirmed Type aspirin 81 mg tablet,delayed 81 mg PO DAILY 07/23/19 06/18/23 History release omega-3 fatty acids 1,000 mg 1,000 mg PO DAILY 07/23/19 06/18/23 History capsule (Fish Oil Concentrate) potassium gluconate 595 mg (99 mg) 595 mg PO DAILY 07/23/19 06/18/23 History tablet cholecalciferol (vitamin D3) 50 4,000 unit PO DAILY 02/16/21 06/18/23 History mcg (2,000 unit) capsule albuterol sulfate 90 mcg/actuation 1 inh inhalation Q4-6H PRN 04/16/22 06/18/23 Rx aerosol inhaler (ProAir HFA) shortness of breath or wheezing #25.5 grams lancets 30 gauge (OneTouch Delica #300 ea 06/27/22 06/18/23 Rx Lancets) empagliflozin 10 mg tablet 10 mg PO QAM #90 tabs 07/22/22 06/18/23 Rx (Jardiance) bupropion HCl 300 mg 24 hr tablet, 300 mg PO QAM
--- NOTE | 2023-06-18 02:45 | ADMGEN ---
This patient, Juliana Ricardo, was admitted to IMU Room 212-01. Patient/family oriented to hospital policies and general routines including ID bracelet, bed and alarms, visiting hours, pain management, procedures, bathroom and other care routines, personal items, smoking policy, room service/diet, and visiting hours. Information on how to activate the Rapid Response Team has been discussed. Patient/Family are encouraged to report perceived risks to care and to ask questions if they do not understand what they are told or what they should do.
[2023-06-18] MEDS: ACETAMINOPHEN 500 MG TABLET 1000 MG PO (04:31)
[2023-06-18] MEDS: NITROGLYCERIN SL 0.4 MG TABLET SUBLINGUAL ×3 (04:32→09:06)
[2023-06-18 05:01] LABS: Troponin I 0.074 ng/mL (0.000-0.034)
[2023-06-18 06:20] LABS: Anion Gap 8 mmol/L (8-16); Blood Urea Nitrogen 21 mg/dL (7-17); Calcium 9.4 mg/dL (8.4-10.2); Carbon Dioxide 29 mmol/L (22-30); Chloride 102 mmol/L (98-107); Estimated CRCL calculation 66 ml/min; Estimated Glomerular Filt Rate > 60; Glucose 132 mg/dL (65-110); Magnesium 2.1 mg/dL (1.6-2.3); Phosphorus 4.7 mg/dL (2.5-4.5); Potassium 3.8 mmol/L (3.4-5.0); Sodium 139 mmol/L (137-145)
[2023-06-18 07:09] LABS: Hematocrit 47.1 % (37.0-47.0); Mean Corpuscular HGB Conc 31.8 g/dl (32-36); Mean Corpuscular Hemoglobin 30.9 pg (26-34); Mean Corpuscular Volume 97.1 fl (80-100); Mean Platelet Volume 9.1 fl (7.4-10.4); Platelet Count Result 206 k/mm3 (150-375); Red Blood Count 4.85 M/mm3 (4.2-5.4); Red Cell Distribution Width 13.9 % (11.5-14.5); White Blood Count 6.5 K/mm3 (4.5-10.0)
[2023-06-18] MEDS: BUDESONIDE RESPULE NEB 0.5 MG/2 ML AMP INHALATION ×2 (07:47→21:12)
[2023-06-18] MEDS: ALBUTEROL SULFATE NEB 2.5 MG/3 ML INH INHALATION ×2 (07:48→17:10)
--- NOTE | 2023-06-18 08:26 | ECG_ITS ---
Measurements Intervals [place] Rate: 84 P: 63 DC: 193 QRS: 18 QRSD: 96 T: 77 QT: 374 QTc: 443 Interpretive Statements SINUS RHYTHM NONSPECIFIC ST & T-WAVE ABNORMALITY CANNOT RULE OUT SEPTAL INFARCT AGE INDETERMINATE ABNORMAL ECG COMPARED TO ECG 06/17/2023 23:28:10 NO SIGNIFICANT CHANGES Electronically Signed On 06-18-2023 15:51:20 DEPOT MANAGER by Nick Oliva M.D.
--- NOTE | 2023-06-18 09:31 | PC.NURSE ---
Sitting up in bedside chair complaining of chest pain that spans across entire upper chest rated 8/10. O2 sat 83% on RA. Placed on 2L via NC. O2 92%. Pt denies SOB, neb tx completed approximately 1 hour ago. SL Nitro x 2 given. Pain totally resolved. EKG completed. Results reviewed with Dr. Dietz. Dr. Nicolas also made aware. Trop ordered. Pt asymptomatic at this time.
[2023-06-18] MEDS: ASPIRIN 81 MG CHEWABLE TABLET PO (09:36)
[2023-06-18] MEDS: OMEGA 3 POLYUNSAT FATTY ACIDS 1 GM CAP PO (09:36)
[2023-06-18] MEDS: buPROPion HCL XL (24 HR) 150 MG TABCR 300 MG PO (09:36)
[2023-06-18] MEDS: NIFEdipine 30 MG TAB.ER.24 60 MG PO (09:36)
[2023-06-18] MEDS: GABAPENTIN 300 MG CAPSULE 900 MG PO ×2 (09:36→21:45)
[2023-06-18] MEDS: CHOLECALCIFEROL 1,000 UNITS TABLET 4000 UNITS PO (09:36)
[2023-06-18] MEDS: DULoxetine HCL 30 MG CAPSULE.DR PO (09:36)
[2023-06-18] MEDS: carvediloL 12.5 MG TABLET PO (09:37)
[2023-06-18] MEDS: CLOPIDOGREL BISULFATE 75 MG TABLET PO (09:37)
[2023-06-18] MEDS: MONTELUKAST SODIUM 10 MG TABLET PO (09:37)
[2023-06-18] MEDS: PANTOPRAZOLE 40 MG TABLET PO (09:37)
[2023-06-18] MEDS: DULoxetine HCL 60 MG CAPSULE.DR PO (09:37)
--- NOTE | 2023-06-18 09:55 | PM.IMPN ---
Progress Note: A&P Assessment and Plan (1) Chest pain: Code(s): R07.9 - Chest pain, unspecified Status: Acute (2) Non-ST elevation [place] (NSTEMI): Code(s): I21.4 - Non-ST elevation (NSTEMI) myocardial infarction Status: Acute (3) COPD (chronic obstructive pulmonary disease): Code(s): J44.9 - Chronic obstructive pulmonary disease, unspecified Status: Acute Plan Pt is currently chest pain free but has typical chest pain syndrome on admission. Stent placed in 2002 and nothing since, including stress test. Cardiology to see patient. appreciate recs. no acute ST changes on EKG. repeat troponin now. counseled on smoking cessation, counseled on risks of smoking. pt amenable to quit, does not prefer help. declines nicotine patch. acute hypoxic respiratory failure - she has diminished breath sounds and mild expiratory wheeze. she hasn't had an exacerbation in many years and doesn't use o2 at home. In light of chest pain will treat aggressively, starting scheduled duonebs and solumedrol 60mg IV TID. CXR on admission without acute abnormalities. she denies cough. check viral PCR for covid flu and RSV. full code. Subjective Date/time seen: 06/18/23 09:55 Interval history: Pt complained of chest pain again this morning relieved with nitroglycerin. She was also short of breath which was relieved with a neb treatment. She currently is asymptomatic and is amenable to heart cath. Review of Systems Review of Systems: All systems reviewed & are unremarkable except as noted in HPI and below Exam Const: General: comfortable and no acute distress Eyes: Pupils: Equal, round and reactive pupils present Neck: Neck: supple Resp: Effort & Inspection: normal respiratory effort Auscultation: wheezes (mild, expiratory) and diminished lung sounds (severe) Cardio: Rate: regular rate Rhythm: regular rhythm Heart sounds: no gallops, no murmurs and no rubs GI: GI Palp: Yes Soft to palpation and No Tenderness to palpation present (GI) Extrem: General: no edema Objective Data Vital Signs Vital Signs: Vital Signs - 24 hr 06/17/23 20:30 06/17/23 21:16 06/17/23 21:16 Temperature 99.4 F 99.7 F H Pulse Rate 94 97 94 Respiratory Rate 16 25 H Blood Pressure 145/68 H 146/69 H Pulse Oximetry 91 95 Oxygen Delivery Room Air 06/17/23 21:17 06/17/23 21:17 06/17/23 21:22 Temperature Pulse Rate 95 Respiratory Rate 33 H Blood Pressure Pulse Oximetry 92 95 Oxygen Delivery Room Air Room Air 06/17/23 22:00 06/17/23 23:30 06/17/23 23:33 Temperature Pulse Rate 94 92 Respiratory Rate 22 H 18 Blood Pressure 150/83 H 150/80 H Pulse Oximetry 92 92 92 Oxygen Delivery 06/17/23 23:45 06/17/23 23:46 06/18/23 00:00 Temperature Pulse Rate 96 96 97 Respiratory Rate 22 H 17 22 H Blood Pressure 155/78 H Pulse Oximetry 93 91 90 Oxygen Delivery 06/18/23 00:01 06/18/23 00:30 06/18/23 00:31 Temperature Pulse Rate 98 97 97 Respiratory Rate 23 H 21 H 29 H Blood Pressure 146/80 H 121/61 Pulse Oximetry 91 90 91 Oxygen Delivery 06/18/23 00:45 06/18/23 00:46 06/18/23 02:26 Temperature 98.1 F Pulse Rate 98 98 93 Respiratory Rate 18 21 H 16 Blood Pressure 144/72 H 132/61 Pulse Oximetry 91 90 90 Oxygen Delivery 06/18/23 02:40 06/18/23 04:57 06/18/23 04:00 Temperature 97.8 F 97.2 F L Pulse Rate 89 88 90 Respiratory Rate 20 18 Blood Pressure 159/65 H 140/57 L Pulse Oximetry 91 91 Oxygen Delivery 06/18/23 04:00 06/18/23 06:00 06/18/23 07:55 Temperature Pulse Rate 88 86 81 Respiratory Rate 18 18 Blood Pressure Pulse Oximetry 91 Oxygen Delivery Room Air 06/18/23 08:15 06/18/23 08:00 06/18/23 09:37 Temperature 98.6 F Pulse Rate 80 85 80 Respiratory Rate 18 20 Blood Pressure 147/73 H Pulse Oximetry 96 Oxygen Delivery Intake/Output Intake/Output: Intake & Output 06/15/23 06/16/23 06/17/23 06/18/23 2
[2023-06-18 10:23] LABS: Troponin I 0.089 ng/mL (0.000-0.034)
--- NOTE | 2023-06-18 10:59 | PM.CNCAR ---
Assessment and Plan Assessment and plan (1) Non-ST elevation MN (NSTEMI): Code(s): I21.4 - Non-ST elevation (NSTEMI) myocardial infarction Status: Acute Assessment and Plan: Given NSTEMI, recommended cardiac catheterization. Discussed indications for cath, procedure details, risks vs benefits, alternative management options, etc. Patient is agreeable to proceed. Will plan for cardiac cath today. Continue ASA, Plavix. Further recommendations and plan pending results of cardiac catheterization. (2) Hyperlipidemia: Code(s): E78.5 - Hyperlipidemia, unspecified Status: Acute Assessment and Plan: Has not tolerated statins in the past. LDL is 111, which is not at goal for her known coronary artery disease. As she has not tolerated statins, she will need Repatha or Leqvio started -- will need close outpatient follow up to get this started. (3) Hypertension: Code(s): I10 - Essential (primary) hypertension Status: Acute Assessment and Plan: Stable, continue home antihypertensive medications. (4) Diabetes mellitus: Code(s): E11.9 - Type 2 diabetes mellitus without complications Status: Acute Assessment and Plan: As per primary team. (5) Tobacco abuse: Code(s): Z72.0 - Tobacco use Status: Acute Assessment and Plan: Counseled on smoking cessation. History of Present Illness History of Present Illness Consult date/time: 06/18/23 10:59 Requesting physician: Randy Darden MD Consult reason: chest pain and Other (NSTEMI) Reason For Visit: Chest Pain, Elevated Troponin, NSTEMI Narrative: We are consulted for NSTEMI. This is a 53 year old female with coronary artery disease s/p inferolateral STEMI in May 2012 s/p PCI to the RPLB with MATTHEW x 1, hypertension, hyperlipidemia (has not tolerated statins in the past), diabetes, COPD who presented to [facility] with chest pain. Patient used to previously see Dr. Lockett, but has not seen a steerer in several years. Patient reports that on Friday, she was at a show, and was going up stairs when she developed chest pain that lasted for a few minutes. Self-resolved. Did not have recurrence of chest pain until Friday at 4 or 5PM. Chest pain has been intermittent and progressive since then. Workup showed elevated troponins of 0.054 / 0.070 / 0.074 / 0.089. EKG with nonspecific STTW changes. She has been taking ASA and Plavix at home. Patient states she has been on Plavix since her STEMI. She is a smoker. Review of Systems Review of Systems: All systems reviewed & are unremarkable except as noted in HPI and below (HPI) [facility] Past Medical History Medical History Atherosclerotic heart disease of [place] coronary artery without angina pectoris (06/11/12) acute posterior lateral MN with occlusion of the posterior lateral branch of the RCA stented with drug-eluting stent. BMI 30.0-30.9,adult BMI 31.0-31.9,adult Breast cancer screening Chronic pain COPD (chronic obstructive pulmonary disease) Dysuria Elbow tendonitis GERD (gastroesophageal reflux disease) History of anesthesia complications Difficulty waking up after History of heart attack 2002 w/stent placement Hyperlipidemia Hypertension Neuropathy Peripheral neuropathy Small fiber neuropathy Vitamin D deficiency Family History Family History Father Family history of alcoholism, Onset Age: 37 Mother Patient's mother is in good health Social History Social History Smoking packs per day: 0.5 Smoking cigarettes per day: 10.0 Years smoked: 36 Smoking pack-years: 18.00 Smoking status: Current every day smoker Tobacco type: cigarettes Alcohol intake: never Substance use: never Substance use type: does not use Do You Feel Safe in your Home?: Yes
--- NOTE | 2023-06-18 11:11 | WPDMODSED ---
Moderate Sedation Note-Pt Data Patient Data Diagnosis: NSTEMI Present Complaint: NSTEMI Procedure to be performed/Plan: Coronary angiography, left heart cath, +/- PCI Allergies Allergy/AdvReac Type Severity Reaction Status Date / Time No Known Allergies Allergy Unknown NONE Verified 04/11/23 08:54 Home Medications Medication Instructions Recorded Confirmed Type aspirin 81 mg tablet,delayed 81 mg PO DAILY 07/23/19 06/18/23 History release omega-3 fatty acids 1,000 mg 1,000 mg PO DAILY 07/23/19 06/18/23 History capsule (Fish Oil Concentrate) potassium gluconate 595 mg (99 mg) 595 mg PO DAILY 07/23/19 06/18/23 History tablet cholecalciferol (vitamin D3) 50 4,000 unit PO DAILY 02/16/21 06/18/23 History mcg (2,000 unit) capsule albuterol sulfate 90 mcg/actuation 1 inh inhalation Q4-6H PRN 04/16/22 06/18/23 Rx aerosol inhaler (ProAir HFA) shortness of breath or wheezing #25.5 grams lancets 30 gauge ([email or web address] [place] #300 ea 06/27/22 06/18/23 Rx Lancets) empagliflozin 10 mg tablet 10 mg PO QAM #90 tabs 07/22/22 06/18/23 Rx (Jardiance) bupropion HCl 300 mg 24 hr tablet, 300 mg PO QAM #90 tabs 09/18/22 06/18/23 Rx extended release (Wellbutrin XL) omeprazole 20 mg capsule,delayed 20 mg PO DAILY #90 caps 11/20/22 06/18/23 Rx release budesonide 0.5 mg/2 mL suspension 0.5 mg (2 mL) inhalation BID 90 11/26/22 06/18/23 Rx for nebulization days #360 mL quetiapine 50 mg tablet 50 mg PO QHS #90 tabs 12/06/22 06/18/23 Rx albuterol sulfate 2.5 mg/3 mL 2.5 mg (3 mL) inhalation Q6H PRN 01/01/23 06/18/23 Rx (0.083 %) solution for nebulization shortness of breath or wheezing 90 days #1,080 mL blood-glucose meter ([email or web address] #1 ea 02/12/23 06/18/23 Rx Ultra2 Meter) blood sugar diagnostic (Blurttuch #300 ea 02/13/23 06/18/23 Rx Ultra Test strips) duloxetine 30 mg capsule,delayed 30 mg PO DAILY 02/18/23 06/18/23 History release montelukast 10 mg tablet 10 mg PO DAILY 90 days #90 tabs 02/18/23 06/18/23 Rx nifedipine 60 mg tablet,extended 60 mg PO DAILY #90 tabs 02/19/23 06/18/23 Rx release 24 hr ipratropium bromide 0.02 % 2.5 ml inhalation Q6H PRN 03/27/23 06/18/23 Rx solution for inhalation shortness of breath or wheezing 90 days #900 mL clopidogrel 75 mg tablet 75 mg PO DAILY #90 tabs 04/21/23 06/18/23 Rx arformoterol 15 mcg/2 mL solution 2 ml inhalation BID #120 mL 04/28/23 06/18/23 Rx for nebulization (Brovana) ezetimibe 10 mg tablet 10 mg PO DAILY #90 tabs 05/20/23 06/18/23 Rx semaglutide 0.25 mg or 0.5 mg (2 0.5 mg (0.736 mL) subcut WEEKLY #3 06/02/23 06/18/23 Rx mg/3 mL) subcutaneous pen injector mL (Ozempic) duloxetine 60 mg capsule,delayed 60 mg PO DAILY #90 caps 06/03/23 06/18/23 Rx release carvedilol 12.5 mg tablet 12.5 mg PO DAILY 06/18/23 06/18/23 History gabapentin 300 mg capsule 900 mg PO BID 06/18/23 06/18/23 History (Neurontin) Current Medications: Active Medications Acetaminophen (Acetaminophen 500 Mg Tablet) 1,000 mg PO Q6H PRN PRN Reason: Mild Pain (1-3) or Fever Last Admin: 06/18/23 04:31 Dose: 1,000 mg Albuterol (Albuterol Sulfate Neb 2.5 Mg/3 Ml Inh) 2.5 mg INHALATION Q6HRT PRN PRN Reason: shortness of breath or wheezing Last Admin: 06/18/23 07:48 Dose: 2.5 mg Albuterol (Albuterol Sulfate (*Sp) Aerosol 1 Puff) 1 puff INHALATION Q4-6H PRN PRN Reason: shortness of breath or wheezing Albuterol (Albuterol Sulfate Neb 2.5 Mg/3 Ml Inh) 2.5 mg INHALATION Q6HRT [facility] Aspirin (Aspirin 81 Mg Chewable Tablet) 81 mg PO DAILY@0800 [facility] Last Admin: 06/18/23 09:36 Dose: 81 mg Atorvastatin Calcium (Atorvastatin 40 Mg Tablet) 80 mg PO DAILY [facility] Budesonide (Budesonide Respule Neb 0.5 Mg/2 Ml Amp) 0.5 mg INHALATION Q12HRT [facility] Last Admin: 06/18/23 07:47 Dose: 0.5 mg Bupropion HCl (Bupropion Hcl Xl (24 Hr) 150 Mg Tabcr) 300 mg PO QAM [facility] Carvedilol (Carvedilol 12.5 Mg Tablet) 12.5 mg PO DAILY [facility] Last Admin: 06/18/23 09:37 Dose: 12.5
[2023-06-18 11:43] LABS: Cholesterol 185 mg/dL (0-200); HDL Direct 37 mg/dL; Triglycerides 153 mg/dL (<150)
[2023-06-18 11:54] LABS: LDL Cholesterol Direct 117 mg/dL
--- NOTE | 2023-06-18 12:03 | WPDCARDPROC ---
Cardiac Cath Procedure Note Date of procedure:: 06/18/23 Performing physician:: CATHETERIZATION LABORATORY REPORT Procedure Date: 06/18/2023 Realty Loan Specialist: Earl Horn M.D., [facility]? Referring Physician: Earl Horn M.D. ? Anesthesia: Versed and Fentanyl were ordered and given in my presence at 11:35, procedure ended at 11:49. Supervision of nurse monitored moderate sedation with Versed and Fentanyl was provided for 14 minutes. Total of Versed 2mg and Fentanyl 50mcg were administered by the Electrical Engineering Director RN Maddie Amos. Pre-op Diagnosis: NSTEMI, Coronary artery disease Post-op Diagnosis: Multivessel coronary artery disease Procedure(s): 1. Moderate sedation 2. Ultrasound-guided access of the right radial artery 3. Coronary angiography Access Site: Right radial artery Brief History and Clinical Indications: Patient is a 53 year old female with coronary artery disease s/p inferolateral STEMI in May 2012 s/p PCI to the RPLB with MATTHEW x 1, hypertension, hyperlipidemia (has not tolerated statins in the past), diabetes, COPD who is referred for [facility] for NSTEMI. All risks, benefits and alternatives to left heart catheterization with or without percutaneous coronary intervention was discussed at length with the patient. Risk of complications including but not limited to bleeding, infection, arrhythmia, stroke, worsening kidney function, blood loss, groin hematoma, limb loss, emergency coronary artery bypass grafting, and even were discussed with the patient and all questions were answered. The patient understood and wished to proceed. Time out called, patient name, date of , medical record number, allergies, procedure performed, identify Realty Loan Specialist, patient and staff member concurred with accurate data, procedure carried on. Findings: LEFT HEART CATHETERIZATION FINDINGS: 1. Left main: The left main coronary artery is widely patent without any significant obstructive disease. 2. Left anterior descending: There are heavy calcifications in the proximal and mid LAD. The mid LAD has a 70% stenosis. Diagonal branches are of very small caliber. 3. Left circumflex: There are heavy calcifications in the proximal and mid portion of LCX. The mid portion of the LCX has a 70% stenosis. OM-1 has luminal irregularities. OM-2 is subtotally occluded with some antegrade flow present. 4. Right coronary artery: Calcifications are seen throughout the RCA. The RCA is the dominant vessel. The proximal portion has mild diffuse disease. The mid portion has a 90-99% stenosis. The distal RCA has mild diffuse disease. Patent stent seen in the proximal-mid portion of the RPLB vessel. The proximal portion of the RPDA branch has an 80-90% stenosis. Description of Procedure: Informed consent signed and placed in the chart. Patient transferred to crime lab technician room. Prepped and draped in usual sterile fashion. 2% lidocaine injected subcutaneously in right wrist area. 22-gauge venipuncture catheter used to access the right radial artery under ultrasound guidance. 6-FR slender sheath placed in right radial artery. Nitroglycerine and Verapamil were given intraarterial through the sheath. Versacore wire advanced under fluoroscopy 5F Tig 4 diagnostic catheter engaged Left Main Coronary Artery. 5F Tig 4 diagnostic catheter engaged Right Coronary Artery Multiple orthogonal angiogram obtained and reviewed Hemostasis was achieved by application of TR band. Post Operative Condition: Stable No significant blood loss Disposition: Floor Plan: The patient will be monitored in the recovery area. Transfer back to the floor after post cath bed rest is completed. Recommend CTS consultation for consideration of surgical revascularization. Continue aggressive medical therapy and risk factor modification. ? Earl Horn M.D. Interventional Cardiology
[2023-06-18 12:18] LABS: Hemoglobin A1C 7.5 % (<5.7)
[2023-06-18] MEDS: ATORVASTATIN 40 MG TABLET 80 MG PO (15:02)
[2023-06-18] MEDS: methylPREDNISolone SOD SUCC 125 MG VIAL 60 MG IV PUSH (15:02)
[2023-06-18] MEDS: SODIUM CHLORIDE 0.9% IV 1,000 ML 125 ML IV CONT (15:02)
[2023-06-18 16:22] LABS: Influenza A QL RT-PCR Negative (Negative); Influenza B QL RT-PCR Negative (Negative); RSV RNA, RT-PCR Negative (Negative); SARS-CoV-2 RNA PCR Positive (Negative)
[2023-06-18] MEDS: IPRATROPIUM BR 0.02% INH SOLN 0.5 MG/2.5 ML VIAL INHALATION (17:11)
[2023-06-18] MEDS: HEPARIN SOD/D5W 100 UNITS/ML 25,000 UNITS/250 ML BAG 7 UNITS IV CONT (18:37)
[2023-06-18 18:57] LABS: Prothrombin Time 13.4 Seconds (11.1-14.7)
[2023-06-18] MEDS: QUEtiapine FUMARATE 25 MG TABLET 50 MG PO (21:44)
--- NOTE | 2023-06-19 07:29 | PM.TDS ---
Transfer Discharge Sum: Prov Provider Date of admission: 06/17/23 22:54 Primary care physician: Saniya Schmitz NP Admitting clinician: Isa Hirsch MD Attending physician on admission: Isa Hirsch Consults: 06/17/23 22:55 Consult to Physician Routine Comment: Consulting Provider: Viktoriya Martell Reason for consultation: chest pain, elevated troponin Has provider been notified: Yes Attending physician on discharge: Marika Nicolas Discharging clinician: Marika Nicolas Anticipated date of transfer: 06/18/23 Receiving physician/facility: [facility] DS: Admitting Diagnosis Discharge Date 06/18/23 Admitting Diagnosis chest pain DS: Discharge Diagnosis Discharge Diagnosis (1) Non-ST elevation PR (NSTEMI): Code(s): I21.4 - Non-ST elevation (NSTEMI) myocardial infarction Status: Acute Transfer Discharge Sum: Med Medications Active and Home Medications: Home Medications aspirin 81 mg tablet,delayed release 81 mg PO DAILY 07/23/19 [History Confirmed 06/18/23] omega-3 fatty acids 1,000 mg capsule (Fish Oil Concentrate) 1,000 mg PO DAILY 07/23/19 [History Confirmed 06/18/23] potassium gluconate 595 mg (99 mg) tablet 595 mg PO DAILY 07/23/19 [History Confirmed 06/18/23] cholecalciferol (vitamin D3) 50 mcg (2,000 unit) capsule 4,000 unit PO DAILY 02/16/21 [History Confirmed 06/18/23] albuterol sulfate 90 mcg/actuation aerosol inhaler (ProAir HFA) 1 inh inhalation Q4-6H PRN shortness of breath or wheezing #25.5 grams 04/16/22 [Rx Confirmed 06/18/23] lancets 30 gauge (One[employer] Lancets) #300 ea 06/27/22 [Rx Confirmed 06/18/23] empagliflozin 10 mg tablet (Jardiance) 10 mg PO QAM #90 tabs 07/22/22 [Rx Confirmed 06/18/23] bupropion HCl 300 mg 24 hr tablet, extended release (Wellbutrin XL) 300 mg PO QAM #90 tabs 09/18/22 [Rx Confirmed 06/18/23] omeprazole 20 mg capsule,delayed release 20 mg PO DAILY #90 caps 11/20/22 [Rx Confirmed 06/18/23] budesonide 0.5 mg/2 mL suspension for nebulization 0.5 mg (2 mL) inhalation BID 90 days #360 mL 11/26/22 [Rx Confirmed 06/18/23] quetiapine 50 mg tablet 50 mg PO QHS #90 tabs 12/06/22 [Rx Confirmed 06/18/23] albuterol sulfate 2.5 mg/3 mL (0.083 %) solution for nebulization 2.5 mg (3 mL) inhalation Q6H PRN shortness of breath or wheezing 90 days #1,080 mL 01/01/23 [Rx Confirmed 06/18/23] blood-glucose meter ([employer] Ultra2 Meter) #1 ea 02/12/23 [Rx Confirmed 06/18/23] blood sugar diagnostic ([employer]ee Ultra Test strips) #300 ea 02/13/23 [Rx Confirmed 06/18/23] duloxetine 30 mg capsule,delayed release 30 mg PO DAILY 02/18/23 [History Confirmed 06/18/23] montelukast 10 mg tablet 10 mg PO DAILY 90 days #90 tabs 02/18/23 [Rx Confirmed 06/18/23] nifedipine 60 mg tablet,extended release 24 hr 60 mg PO DAILY #90 tabs 02/19/23 [Rx Confirmed 06/18/23] ipratropium bromide 0.02 % solution for inhalation 2.5 ml inhalation Q6H PRN shortness of breath or wheezing 90 days #900 mL 03/27/23 [Rx Confirmed 06/18/23] clopidogrel 75 mg tablet 75 mg PO DAILY #90 tabs 04/21/23 [Rx Confirmed 06/18/23] arformoterol 15 mcg/2 mL solution for nebulization (Brovana) 2 ml inhalation BID #120 mL 04/28/23 [Rx Confirmed 06/18/23] ezetimibe 10 mg tablet 10 mg PO DAILY #90 tabs 05/20/23 [Rx Confirmed 06/18/23] semaglutide 0.25 mg or 0.5 mg (2 mg/3 mL) subcutaneous pen injector (Ozempic) 0.5 mg (0.736 mL) subcut WEEKLY #3 mL 06/02/23 [Rx Confirmed 06/18/23] duloxetine 60 mg capsule,delayed release 60 mg PO DAILY #90 caps 06/03/23 [Rx Confirmed 06/18/23] carvedilol 12.5 mg tablet 12.5 mg PO DAILY 06/18/23 [History Confirmed 06/18/23] gabapentin 300 mg capsule (Neurontin) 900 mg PO BID 06/18/23 [History Confirmed 06/18/23] Transfer Discharge Sum: Hosp Hospital Course Hospital course: 53F w/ PMH coronary artery disease s/p inferolateral STEMI in May 2012 s/p PCI to the RPLB with MATTHEW x 1, hypertension, hyperlipidemia, COPD, NIDDM presented with chest pain and admitted for NSTEMI. Pt underwent LHC on 05/31
== END 2023-06-18 21:56 | disposition short-term general hospital (02) ==
LOC: ANHED 22:06 → ANHIMU 06-18 10:43
PROVIDERS: Emergency Medicine; Internal Medicine; Admitting Provider Internal Medicine; Emergency Provider Emergency Medicine; PCP Nurse Practitioner Family; Visit Provider General Practice
PROC: (CPT 93454; principal; 2023-06-18 11:00)
DX: I21.4 Non-ST elevation (NSTEMI) myocardial infarction (principal); I25.2 Old myocardial infarction; J44.9 Chronic obstructive pulmonary disease, unspecified; U07.1 COVID-19; R79.89 Other specified abnormal findings of blood chemistry; I25.10 Atherosclerotic heart disease of native coronary artery without angina pectoris; Z95.5 Presence of coronary angioplasty implant and graft; R94.31 Abnormal electrocardiogram [ECG] [EKG]; K21.9 Gastro-esophageal reflux disease without esophagitis; E78.5 Hyperlipidemia, unspecified; I10 Essential (primary) hypertension; E11.9 Type 2 diabetes mellitus without complications; G62.9 Polyneuropathy, unspecified; G89.29 Other chronic pain; F17.210 Nicotine dependence, cigarettes, uncomplicated; E55.9 Vitamin D deficiency, unspecified; Z79.52 Long term (current) use of systemic steroids; Z79.82 Long term (current) use of aspirin; Z79.899 Other long term (current) drug therapy
CPT/HCPCS: 36415; 71046; 80048; 80053; 80061; 83036; 83690; 83735; 84100; 84484; 85025; 85027; 85055; 85610; 85730; 87637; 93005; 93454; 94640; 99291; A9270; C1769; C1887; C1894; G0378; J1644; J2250; J2305; J2930; J3010; J7030; J7040

== ENCOUNTER 2023-11-03 10:25 | Outpatient (CLI) | payer BC, SELFPAY ==
--- NOTE | ~2023-11-03 | CT_ITS ---
CT Scan of the Chest without Contrast: Clinical Indication: Pulmonary nodule Technique: Contiguous sections were acquired throughout the chest without intravenous contrast. Dose reduction technique was used on this scan by utilizing automated exposure control and iterative recon struction technique. The dose-length product (DLP) was 118.15 mGy-cm. COMPARISON: 06/02/2023 Findings: There is no evidence of any significant mediastinal, hilar or axillary lymphadenopathy. Status post C ABG. There is no evidence of pleural or pericardial effusion. Stable 3 mm right upper lobe pulmonary nodule. Stable 3 mm left basilar pulmonary nodule. Patchy airs pace opacities seen on prior exam, predominantly in the right middle lobe, are resolved. Images through the upper abdomen reveal small gallstones. Impression: Interval resolution of presumed patchy pneumonia seen on prior exam. Stable subcentimeter pulmonary nodules, as above. Reviewed, dictated and finalized at [facility]. Impression: Interval resolution of presumed patchy pneumonia seen on prior exam. Stable subcentimeter pulmonary nodules, as above.
== END 2023-11-03 10:26 | disposition home or self-care (01) ==
PROVIDERS: PCP Nurse Practitioner Family; Visit Provider Physician Assistant
DX: R91.1 Solitary pulmonary nodule (principal); J44.9 Chronic obstructive pulmonary disease, unspecified; Z87.891 Personal history of nicotine dependence; R91.8 Other nonspecific abnormal finding of lung field
CPT/HCPCS: 71250

== ENCOUNTER 2023-12-01 16:15 | Outpatient (RCR) | payer BC, SELFPAY ==
[2023-10-27 16:33] LABS: Glucose Point of Care 156 mg/dl (65-105)
[2023-10-27 17:23] LABS: Glucose Point of Care 133 mg/dl (65-105)
== END 2023-12-15 07:10 | disposition home or self-care (01) ==
LOC: ANHCPREHAB 16:15
PROVIDERS: PCP Nurse Practitioner Family; Visit Provider Internal Medicine
DX: Z95.1 Presence of aortocoronary bypass graft (principal)
CPT/HCPCS: 93798

== ENCOUNTER 2024-02-27 14:31 | Emergency (ER) | payer BC, SELFPAY ==
[2024-02-27 14:48] VITALS: BP 125/66; PULSE 80; RESP 15; TEMP 36.4; O2SAT 100
--- NOTE | 2024-02-27 14:48 | ED.FEMALEGU ---
HPI - Female Genitourinary General Chief complaint: Urogenital-Female Stated complaint: Urinary Problems Time Seen by Provider: 02/27/24 14:48 Source: patient Mode of arrival: ambulatory Limitations: no limitations History of Present Illness HPI Narrative: 53-year-old female presents with complaint of urinary frequency, urgency, dysuria for 6 days. Saw a urologist on Friday and urinalysis was normal. Was also told urine culture normal. Had 2+ glucose in urine and was taken off her Jardiance and started glimepiride. Afebrile. Denies nausea vomiting diarrhea. All systems reviewed and negative except as noted above. Related Data Home Medications Medication Instructions Recorded Confirmed aspirin 81 mg tablet,delayed 81 mg PO DAILY 07/23/19 02/27/24 release cholecalciferol (vitamin D3) 50 4,000 unit PO DAILY 02/16/21 02/27/24 mcg (2,000 unit) capsule lisinopril 20 mg tablet 20 mg PO DAILY 10/08/23 02/27/24 famotidine 20 mg tablet (Pepcid) 20 mg PO BID 01/28/24 02/27/24 Allergies Allergy/AdvReac Type Severity Reaction Status Date / Time No Known Allergies Allergy Unknown NONE Verified 02/27/24 14:45 [facility] Past Medical History Medical History (Updated 02/27/24 @ 14:59 by Renee Hogue NP) Atherosclerotic heart disease of [place] coronary artery without angina pectoris (06/11/12) acute posterior lateral [place] with occlusion of the posterior lateral branch of the RCA stented with drug-eluting stent. BMI 29.0-29.9,adult BMI 30.0-30.9,adult BMI 31.0-31.9,adult Breast cancer screening CAD (coronary artery disease) Chronic pain COPD (chronic obstructive pulmonary disease) Dysuria Elbow tendonitis GERD (gastroesophageal reflux disease) History of anesthesia complications Difficulty waking up after History of heart attack 2002 w/stent placement 2023 - quadruple bypass Hyperlipidemia Hypertension Neuropathy Peripheral neuropathy Small fiber neuropathy Vitamin D deficiency Surgical History Surgical History History of quadruple bypass Family History Family History Father Family history of alcoholism, Onset Age: 37 Mother Patient's mother is in good health Social History Social History Smoking packs per day: 1 Smoking cigarettes per day: 20.0 Years smoked: 37 Smoking pack-years: 37.00 Smoking status: Former smoker Tobacco type: cigarettes Second hand tobacco smoke exposure: No ( also quit apx same time) Smoking end date: 06/23/23 Alcohol intake: never Substance use: never Substance use type: does not use Do You Feel Safe in your Home?: Yes Lack of Transportation: No Lack of Food: Never True Current Housing: I Have Housing Concerned About Future Housing: No Difficulty Paying Gas/Electric Bills: No Difficulty Paying for Meds: No Currently Unemployed: No Education: Decline to Answer Difficulty w/ Childcare or Family Care: No Gender identity (if verbalized by the patient): Female Spiritual care concerns: No Comments At time of signature, agree with nursing past medical, surgical, social and family history. There is no relevant family history pertinent to the presenting complaint. Exam Narrative: GENERAL: This is a well-nourished, well-developed patient, in no apparent distress. HEAD: normocephalic, atraumatic. EYES: PERRL. Sclera clear/white. Vision is grossly intact. EARS: External ears normal NOSE: External nose normal NECK: Neck supple, non-tender without lymphadenopathy, masses or thyromegaly. CARDIOVASCULAR: Regular rate and rhythm without murmurs, gallops, or rubs. RESPIRATORY: Clear to auscultation. Breath sounds equal bilaterally. No wheezes, rales, or rhonchi. SKIN: warm, Dry, intact with no suspicious lesions or rash, good texture and turgor.
[2024-02-27 15:05] LABS: EDUAAPPEAR Cloudy; EDUABILI Negative; EDUABLOOD 3+; EDUACOLOR1 Yellow; EDUAGLUCOSE 2+; EDUAKETONE Negative; EDUALEUKO 1+; EDUANITRATE Negative; EDUAPH 5.5; EDUAPROTEIN 3+; EDUAUROBILI 0.2
== END 2024-02-27 15:03 | disposition home or self-care (01) ==
PROVIDERS: Emergency Provider Nurse Practitioner Family; PCP Nurse Practitioner Family
DX: N39.0 Urinary tract infection, site not specified (principal); Z87.891 Personal history of nicotine dependence; I25.10 Atherosclerotic heart disease of native coronary artery without angina pectoris; J44.9 Chronic obstructive pulmonary disease, unspecified; K21.9 Gastro-esophageal reflux disease without esophagitis; I25.2 Old myocardial infarction; Z95.5 Presence of coronary angioplasty implant and graft; E78.5 Hyperlipidemia, unspecified; I10 Essential (primary) hypertension; G62.9 Polyneuropathy, unspecified; E55.9 Vitamin D deficiency, unspecified; Z79.82 Long term (current) use of aspirin
CPT/HCPCS: 81003; 87086; 87088; 99213; G0463

== ENCOUNTER 2024-08-04 08:47 | Outpatient (CLI) | payer BC, SELFPAY ==
--- NOTE | ~2024-08-04 | MM_ITS ---
EXAMINATION: MM diagnostic jules BI w kayley HISTORY: Left breast pain TECHNIQUE: Additional 3-D tomosynthesis images of the breasts were performed and synthetic 2-D images were generated. CAD analysis was submitted and interpreted. COMPARISON: Comparison to multiple prior studies sequentially, with oldest reviewed study dated 05/30. BREAST PARENCHYMAL COMPOSITION: Not dense: There are scattered areas of fibroglandular density. FINDINGS: The breasts are stable. No new masses, calcifications or architectural distortion in either breast to suggest malignancy. IMPRESSION: 1. No mammographic evidence for malignancy in either breast. 2. Routine yearly screening mammogram and regular clinical breast examination are recommended. BI-RADS Category 1: Negative Reviewed, dictated and finalized at location [] [employer] IMPRESSION: 1. No mammographic evidence for malignancy in either breast. 2. Routine yearly screening mammogram and regular clinical breast examination a re recommended. BI-RADS Category 1: Negative
== END 2024-08-04 08:48 | disposition home or self-care (01) ==
LOC: MICIMG 08:48
PROVIDERS: PCP Nurse Practitioner Family; Visit Provider Obstetrics & Gynecology
DX: N64.4 Mastodynia (principal)
CPT/HCPCS: 77062; 77066; G0279

== ENCOUNTER 2025-02-20 11:42 | Emergency (ER) | payer BC, SELFPAY ==
--- OUTSIDE RECORDS SUMMARY | 2011-03-04 19:00 | XMS_ITS | Continuity of Care Document ---
Author Organization [facility] Address [address] [place] [address] Phone Care Team Providers Care Office Mover Name Role Phone Woody Gee MD Unavailable Unavailable Allergies, Adverse Reactions, Alerts Substance Reaction Status Criticality methyldopa Other Active No Information Medications Medication Instructions Dosage Effective Dates (start - stop) Status Comments ALBUTEROL 90MCG PUFFS 2 QID - Acti ve LIPITOR 20 MG TABLET 1 QPM - Activ e NIFEDIPINE ER 60 MG TABLET 1 QD - Active CYCLOBENZAPRINE HCL 10MG TABS 1 QHS - Active ADULT LOW STRENGTH 81MG TABS 1 QD - Active BUPROPION HCL 100MG TABS 1 TID - A ctive LIPITOR 20 MG TABLET 1 QPM 2004 - No Longer Active LIPITOR 20MG TABS 1 QPM - No Longer Active NIFEDIPINE ER 30MG TABS 1 QD - No Longer Active NIFEDIPINE ER 60 MG TABLET 1 QD - No Longer Active NIFEDIPINE ER 60 MG TABLET 1 QD - No Longer Active METHYLDOPA 250MG TABS 3 TID - No Longer Active LOZOL 2.5MG TABS 1 QAM - No Longer Active MICRO-K 10 10MEQ CAPS 1 QD - No Longer Active Advance Directives Directive Yes / No Effective Date File Name No Information Encounters Encounter Description Practice Location Reason(s) For Visit Diagnoses Date Provider Providers Copied on Encounter [facility], [address], [place], [place], [address] , [place] tel:[phone] [facility] No Information 0 [phone] 1 Gee Woody. [address], [place], [place], [address]. tel:[phone] [facility], [address], [place], [place], [address] , [place] tel: [phone] [facility] OBS [facility] W([facility] EXAC 8200 6 Gee Woody. [address], [address], [place], [place], [address]. tel: [phone] [facility], [address], [place], [place], [address] , [place] tel:[phone] [facility] CERVICALGIA 9200 5 Gee Woody. [address], [address], [place], [place], [address]. tel: [phone] [facility], [address], [place], [place], [address] , [place] tel: [phone] [facility] HYPERLIPIDEMIA NEC/NOS 6200 5 Conversion Doctor. [address] [place], [address], [place]. [facility], [address], [place], [place], [address] , [place] tel: [phone] [facility] No Information 6200 5 Gee Woody. [address], [place], [place], [address]. tel: [phone] [facility], [address], [place], [place], [address] , [place] tel: [phone] [facility] BENIGN HYPERTENSIONDMII WO CMP NT ST UNCNTR 4200 5 Gee Woody. [address], [place], [place], [address]. tel: [phone] [facility], [address], [place], [place], [address] , tel: [phone] [facility] ABN BLOOD CHEMISTRY NECVACCINATION FOR TD-DT 3-200 4 Gee Woody. [address] , [address], [place], [place], [address]. tel:[phone] [facility], [address], [place], [place], [address] , tel: [phone] [facility] ACUTE BRONCHITISACUTE SINUSITIS NOS Sep-2 1-200 3 Conversion Doctor. [address] [place] [address], [address], [place]. [facility], [address], [place], [place], [address] , tel: [phone] [facility] TOBACCO USE DISORDER Dec-3 0-200 3 Conversion Doctor[address] [place] [address], [address], [place]. [facility], [address], [place], [place], [address] , tel: [phone] [facility] JOINT PAIN-HANDGENERAL OSTEOARTHROSIS Feb-2 5-200 2 Gee Woody. [address] , [address], [place], [place], [address]. tel: [phone] [facility], [address], [place], [place], [address] , tel: [phone] [facility] LIVER DISORDERS NECHYPERTENSION NOS 0-200 1 Gee Woody. [address] , [address], [place], [place], [address]. tel:[phone] Family History Family Member Type Diagnosis Age At Onset No Information Immunizations Vaccine Date Status Comments 19002 - TD administered Source: Source Unspecified Payers Payer name Insurance type Covered libertarian ID Authoriza tion(s) No Information Social History Type Description Quantity Date Captured Comments Sex Female Smoking Status No Information Chief Complaint And Reason For Visit No Information Reason For Referral Reason For Referral No Information History Of Present Illness Encounter Date Complaint History Of Prese nt Illness No Information Functional Status Date Functional Assessmen t No Information Medications Administered Medication Instructions Dosage Effective Dates (start - stop) Status Comments LIPITOR 20MG TABS 1 QPM - No Longer Active NIFEDIPINE ER 30MG TABS 1 QD - No Longer Active NIFEDIPINE ER 60 MG TABLET 1 QD - No Longer Active Instructions Date Instruction Additional Infor mation No Information Assessments Type Assessment Date No Information Patient Care Teams Name Effective Dates (start - stop) Status Members No Information
--- OUTSIDE RECORDS SUMMARY | 2025-02-20 11:45 | XMS_ITS | Clinical Summary ---
Author Organization [facility] [employer] Address [address] [place] [address] Care Team Providers Care Ship Construction Teacher Name Role Phone Miguel Ma MD Primary Care Provider [phone] Source Comments [facility] [employer],non-owned Affiliates and Associated Physician Practices is amultiple site organization consisting of ambulatory clinics and hospital sitesin [place], [place], [place] and [place]. This disclosure is being madepursuant to the Care Everywhere program and may not contain all information available regarding this patient. Last updated 18.[facility] [employer] Allergies No known active allergies Medications * Be aware that medications may not be up to date on this document. Alwaysverify current medications with the patient. montelukast (SINGULAIR) 10 MG tablet Take 10 mg by mouth at bedtime Active rOPINIRole (REQUIP) 2 MG tablet Take 2 mg by mouth 3 times daily Active lisinopril (PRINIVIL; ZESTRIL) 40 MG tablet Take 40 mg by mouth once daily Active atorvastatin (LIPITOR) 20 MG tablet Take 20 mg by mouth at bedtime Active carvedilol (COREG) 12.5 MG tablet Take 12.5 mg by mouth 2 times daily with morning and evening meal Active clopidogrel (PLAVIX) 75 MG tablet Take 75 mg by mouth once daily Active IPRATROPIUM-ALB UTEROL IN Active metFORMIN ER 24hr (GLUCOPHAGE XR) 500MG tablet Take 500 mg by mouth daily with dinner Active NIFEdipine CR 24hr (ADALAT CC) 60 MG tablet Take 60 mg by mouth once daily Take on an empty stomach. Active albuterol HFA (PROVENTIL;VENT ACE;PROAIR) 108 (90 BASE) MCG/ACT inhaler Inhale 2 puffs by mouth every 6 hours as needed 1 Inhaler 08/09/2017 Active Family History Relation Name Status Comments Father Mother Social History Tobacco Use Types Packs/Day Years Used Date Smoking Tobacco: Every Day Cigarettes Smokeless Tobacco: Never Comments:started at age 17 Comments No Sex and Gender Information Value Date Recorded Sex Assigned at Not on file Legal Sex Female 3:32 AM CDT Gender Identity Not on file Sexual Orientation Not on file Last Filed Vital Signs Vital Sign Reading Time Taken Comments Blood Pressure 122/68 08/09/2017 2:32 PM 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 Pulse 84 08/09/2017 2:32 PM 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 Temperature 37.2 C (99 F) 08/09/2017 2:32 PM 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 Respiratory Rate 18 08/09/2017 2:32 PM 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 Oxygen Saturation 93% 08/09/2017 2:32 PM 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 Inhaled Oxygen Concentration - - Weight 81.6 kg (180 lb) 08/09/2017 2:32 PM 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 Height 157.5 cm (5' 2) 08/09/2017 2:32 PM 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 Body Mass Index 32.92 08/09/2017 2:32 PM 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 Plan of Treatment Health Maintenance Due Date Last Done Comments COLOGUARD (AGES 45-75) - COL ON CA SCREENING 1969 COLON MONITORING 1969 COLONOSCOPY - COLON CA SCREENING 1969 CT COLONOGRAPHY - COLON CA SCREENING 1969 Colorectal Cancer Screening 1969 FIT - COLON CA SCREENING 1969 FLEX SIG - COLON CA SCREENING 1969 MAMMOGRAM 1969 HIV SCREENING 1984 HEPATITIS C SCREENING 03/05/1987 DTAP/TDAP/TD VACCINES (1 - Tdap) 1988 HEPATITIS B VACCINE (1 of 3 - 19+ 3-dose series) 1988 SCREENING FOR DIABETES 08/09/2017 PNEUMOCOCCAL VACCINE 50+ (1 of 1 - PCV) 2019 ZOSTER VACCINE (1 of 2) 2019 COVID-19 VACCINE (1 - 2023-2 5 season) 2024 DEPRESSION SCREENING 06/30/2024 INFLUENZA VACCINE (#1) 2025 HIB VACCINE Aged Out No longer eligi ble based on patient's age to complete this topic HPV VACCINE Aged Out No longer eligi ble based on patient's age to complete this topic MENINGOCOCCAL (Group B) VACC INE SHARED DECISION-MAKING Aged Out No longer eligibl e based on patient's age to complete this topic MENINGOCOCCAL GROUPS A/C/Y/W VACCINE Aged Out No longer eligible b ased on patient's age to complete this topic Insurance [facility] Care Teams Ship Construction Teacher Relationship Specialty Start Date End Date Miguel Ma MD [address] [place] [address] PCP - General Internal Medicine 08/09/17
--- OUTSIDE RECORDS SUMMARY | 2025-02-20 11:45 | XMS_ITS | Clinical Summary ---
Author Organization [facility] Address [address] [place] [address] Care Team Providers Care Farmer Cash Grain Name Role Phone Saniya Schmitz NP Primary Care Provider [phone] Scar Crenshaw MD Unavailable [phone] Miscellaneous, Not In File Unavailable Unava ilable Earl Horn MD Unavailable [phone] Allergies Active Allergy Reactions Criticality Noted Date Comments Nroyyqv-Kow-Nzc Reductase Inhibitors Muscle pain Medium 06/19/2023 Atorvastatin Medications ezetimibe (ZETIA) 10 mg tablet Take 1 tablet (10 mg total) by mouth daily Active montelukast (SINGULAIR) 10 mg tablet Take 1 tablet (10 mg total) by mouth nightly Active QUEtiapine (SEROquel) 50 mg tablet Take 1 tablet (50 mg total) by mouth nightly 12/07/19 23 Active omeprazole (PriLOSEC) 20 mg capsule Take 1 capsule (20 mg total) by mouth daily Active aspirin 81 mg enteric coated tablet Take 1 tablet (81 mg total) by mouth daily Active cholecalcifero l (VITAMIN D-3) 3,000 unit tablet Take 0.6667 tablets (2,000 Units total) by mouth daily Active Ozempic 2 mg/dose (8 mg/3 mL) pen injector injection 4 mg once a week Every 7 days 05/25/20 24 Active mecobal-levome folat Ca-B6 phos (Metanx FC) 2-3-35 mg capsule 07/27/19 25 Active mecobalamin, vitamin B12, (B12 Active) 1,000 mcg tablet,chewabl e 06/30/19 24 Active glimepiride (AMARYL) 2 mg tablet Take 1 tablet (2 mg total) by mouth daily before breakfast Take with 4 mg to equal 6 mg 08/13/19 25 Active glimepiride (AMARYL) 4 mg tablet Take 1 tablet (4 mg total) by mouth daily before breakfast Take with 2 mg to equal 6 mg 07/31/19 25 Active ferrous sulfate (iron) 325 mg (65 mg of elemental iron) tablet 06/30/19 24 Active gabapentin (NEURONTIN) 300 mg capsuleIndicat ions:Small fiber neuropathy Take 3 capsules (900 mg total) by mouth 3 (three) times a day Ok to take an extra 300mg in evening if needed 270 capsule 09/14/19 25 Active lisinopriL (PRINIVIL,ZEST RIL) 20 mg tablet TAKE 1 TABLET DAILY 90 tablet 3 09/29/19 25 Active Dexcom G7 Sensor device CHANGE EVERY 10 DAYS 10/15/19 25 Active eszopiclone (LUNESTA) 2 mg tablet Take 1 tablet (2 mg total) by mouth nightly 12/29/19 25 Active evolocumab (Repatha SureClick) 140 mg/mL pen injector ADMINISTER 1 ML(140 MG) UNDER THE SKIN EVERY 14 DAYS 2 mL 02/15/20 25 Active evolocumab (Repatha SureClick) 140 mg/mL pen injector Inject 1 mL (140 mg total) under the skin every 14 (fourteen) days 6 mL 2 11/02/19 25 025 Discontinued Active Problems Problem Noted Date Diagnosed Date Intractable neuropathic pain of upper extremity 01/29/2025 Intractable neuropathic pain of lower extremity 01/20/2025 Small fiber neuropathy 01/20/2025 Chronic painful diabetic neuropathy 01/20/2025 Hx of CABG 02/13/2024 Hypertension 02/13/2024 Hyperlipidemia 02/13/2024 Postoperative atrial fibrillation 02/13/2024 Coronary artery disease invo lving autologous artery coronary bypass graft without angina pectoris 06/25/2023 Coronary artery disease invo lving [place] coronary artery of [place] heart without angina pectoris 06/24/2023 CAD in [place] artery 06/19/2023 Resolved Problems Problem Noted Date Diagnosed Date Resolved Date Coronary arteriosclerosis in [place] artery 04/25/2014 02/13/2024 Overview (10/03/2016): Coronary arteriosclerosis in [place] artery Encounters Date Type Department Care Team Description 02/11/2025 Telephone [facility] at [address] [place] [address] Donny Cerda MD PhD [facility] trial authorization 02/03/2025 Telephone [facility] at [address], [address] [place] [address] Donny Cerda MD PhD 02/02/2025 9:[address] [facility] Medicine Pain Management [address] [place] [address] [address] [place] [address] Juliana Renteria, PhD Other chronic pain (Primary Dx) 01/20/2025 7:21 AM CDT - 01/20/2025 11:59 PM CDT Hospital Encounter [facility] at [address] [place] [address] Donny Cerda MD PhD Chronic painful diabetic neuropathy (HCC) - Bilateral (Primary Dx); Intractable neuropathic pain of lower extremity - Bilateral; Small fiber neuropathy - Bilateral; Intractable neuropathic pain of upper extremity Discharge Disposition: Discharge to home or self care 01/20/2025 Telephone [facility] at [address] [place] [address] Donny Cerda MD PhD 01/20/2025 Telephone [facility] at [address] [place] [address] Donny Cerda MD PhD 11/25/[address] [facility] Cardiology [address] [place] [address] Amy Fam NP 11/23/2024 Telephone [facility] Management Center at [facility] [address] [place] [address] Donny Cerda MD PhD Anticoagulation from Last 3 Months Immunizations Immunization Administration Dates Next Due Influenza, Unspecified 03/30/2023 Surgical History Surgery Date Site/Laterality Comments SECTION 2001 CORONARY ARTERY BYPASS GRAFT 05/2023 TUBAL LIGATION 2004 Medical History Medical History Date Comments Hypertension Hypertension Diabetes mellitus (HCC) 06/30/2001 Heart disease 2013 Neuromuscular disorder 2020 Family History Medical History Relation Name Comments Alcohol abuse Father Johan Lockhart Relation Name Status Comments Father Johan Lockhart Social History Tobacco Use Types Packs/Day Years Used Date Smoking Tobacco: Former Cigarettes Q uit: 06/19/2023 Smokeless Tobacco: Never Comments:Smoking History Pac ks/day: 1 Packs/ Quit in May 2023 Alcohol Use Standard Drinks/Week Comments No 0 (1 standard drink = 0.6 oz pur e alcohol) OASIS D0700: Social Isolation Answer Da te Recorded Frequency of experiencing loneliness or isolatio n Never 07/23/2023 OASIS A1250: Transportation Answer Date Recorded Lack of Transportation (Medical) No 07/23/2023 Lack of Transportation (Non-Medical) No 07/23/2023 Patient Unable or Declines to Respond No 07/23/2023 OASIS B1300: Health Literacy Answer Tate e Recorded Frequency of needing help to read materials from doctor or pharmacy Never 07/23/2023 [facility] Utilities Answer Date Recorded In the past 12 months has e [employer], gas, oil, or water [employer] threatened to shut off services in your home? No 06/19/2023 Social Connection and Isolation Panel Answer Date Recorded In a typical week, how many times do you talk on the phone with family, friends, or neighbors? More than three times a week 06/19/2023 How often do you get togethe r with friends or relatives? More than three times a week 06/19/2023 How often do you attend chur ch or christianity services? Never 06/19/2023 Do you belong to any clubs o r organizations such as mandaen groups, unions, fraternal or athletic groups, or school groups? No 06/19/2023 How often do you attend meet ings of the clubs or organizations you belong to? Never 06/19/2023 Are you , , di vorced, , never , or living with a partner? 06/19/2023 Overall Financial Resource Strain (CARDIA) Answe r Date Recorded How hard is it for you to pa y for the very basics like food, housing, medical care, and heating? Not hard at all 06/19/2023 PHQ-2 Answer Date Recorded Patient Health Questionnaire-2 Score 0 01/29/2025 Hunger Vital Sign Answer Date Recorded Within the past 12 months, y ou worried that your food would run out before you got the money to buy more. Never true 06/19/20 23 Within the past 12 months, t he food you bought just didn't last and you didn't have money to get more. Never true 06/19/2023 PRAPARE - Transportation Answer Date Re corded In the past 12 months, has l ack of transportation kept you from medical appointments or from getting medications? No 05/31 In the past 12 months, has l ack of transportation kept you from meetings, work, or from getting things needed for daily living? No 06/19/2023 Housing Stability Vital Sign Answer Tate e Recorded In the last 12 months, was t here a time when you were not able to pay the mortgage or rent on time? No 06/19/2023 In the last 12 months, how many places have you lived? 1 06/19/2023 In the last 12 months, was t here a time when you did not have a steady place to sleep or slept in a assisted (including now)? No 06/19/2023 PHQ-9 Answer Date Recorded Patient Health Questionnaire-9 Score 5 01/29/2025 Personal Safety Answer Date Recorded Have you ever been in or are you currently in a harmful physical or emotional relationship or is someone making you feel afraid or unsafe? Denies 06/18/2023 Comments Unknown Sex and Gender Information Value Date Recorded Sex Assigned at Not on file Legal Sex Female 10:11 PM SURG TECH Gender Identity Not on file Sexual Orientation Not on file Obstetrics History Last Filed Vital Signs Vital Sign Reading Time Taken Comments Blood Pressure 135/61 01/20/2025 7:47 AM CDT Pulse 81 01/20/2025 7:47 AM CDT Temperature 36.2 C (97.2 F) 01/20/2025 7:47 AM CDT Respiratory Rate 18 01/20/2025 7:47 AM CDT Oxygen Saturation 95% 01/20/2025 7:47 AM CDT Inhaled Oxygen Concentration - - Weight 80.3 kg (177 lb) 01/20/2025 7:47 AM CDT Height 157.5 cm (5' 2) 08/13/2024 10:45 AM SURG TECH Body Mass Index 32.37 08/13/2024 10:45 AM SURG TECH Plan of Treatment Health Maintenance Due Date Last Done Comments Albumin Creatinine Ratio, Urine 1969 Breast Cancer Screening-Mammogram 1969 Colon Cancer Screening-Colonoscopy 1969 Depression Screening 1969 Hepatitis C Screening 1969 Dilated Eye Exam 1969 Foot Exam 1969 DTaP/Tdap/Td Vaccine (1 - Tdap) 1980 Hepatitis B Screening 1987 Regular Well Visit/Exam 18-64 1987 Cervical Cancer Screening 12/20/2014 12/20/2013 Pneumococcal vaccine <65 (2 of 2 - PPSV23, PCV20, or PCV21) 05/27/2020 04/01/2020 Hemoglobin A1C 12/19/2023 06/19/2023 Covid-19 Vaccine (5 - 2023-2 5 season) 2024 03/15/2022, 06/01/2021, 10/02/2020, Additional history exists eGFR 09/30/2024 10/01/2023, 01/0 02/2024, 07/01/2023, Additional history exists Influenza Vaccine (#1) 2025 , 03/15/2022, 04/13/2021, Additional history exists Lipid Panel 03/05/2025 03/05/2024, 06/19/2023 Zoster Vaccine Completed 08/18/2020, 03/03/2020 Goals Goal Patient Goal Type Associated Problems Recent Progress Patient-Stated? Author CCM Chronic Pain Care Plan Chronic Care Management Madelyn Schuler, RN Note: Problem: Chronic Pain Goals: 1. Minimize further functional decline 2. Maximize quality of life 3. Control pain Strategies: - Activity/exercise program recommendation - Conservative stepwise pain medicine strategy with multi-disciplinary approach - Recommend healthy lifestyle strategies and compensatory methods as needed Reduce the likelihood of falling Lifestyle Madelyn Schuler RN Note: Below are four things you can do to prevent falls: Begin an exercise program to improve your leg strength & balance Ask your doctor or pharmacist to review your medicines Get annual eye check-ups & update your eyeglasses Make your home safer by: Removing clutter & tripping hazards Putting railings on all stairs & adding grab bars in the bathroom Having good lighting, especially on stairs Contact your local community or [facility] for information on exercise, fall prevention programs, or options for improving home safety. Procedures Procedure Name Priority Date/Time Associated Diagnosis Comments POCT LIPID PANEL Routine 03/05/2024 9:35 AM CDT Hyperlipidemia, unspecified hyperlipidemia type COMPREHENSIVE METABOLIC PANEL Routine 10/01/2023 10:20 AM CDT Hypertension, unspecified type HEMOGLOBIN A1C Add-On 06/19/2023 7:41 AM SURG TECH THINPREP PAP Routine 12/20/2013 10:15 AM CDT from Last 3 Months or Most Recently Relevant to Health Maintenance Results * POCT lipid panel (03/05/2024 9:35 AM CDT) Cholesterol, POC 107 mg/dL HDL, POC - mg/dL Triglycerides, POC 171 mg/dL LDL Cholesterol POC 21 mg/dL Chol/HDL Ratio, POC 0.4 Non-HDL Cholesterol, POC 55 mg/dL Cholesterol Total, POC 107 mg/dL Capillary blood 03/05/2024 9 :35 AM CDT [facility] Nick Horn MD POINT OF CARE TEST TEO ANDRADE Final Result * (ABNORMAL) Comprehensive metabolic panel (10/01/2023 10:20 AM CDT) Pathologist [facility] Glucose 128(H) 65 - 99 mg/dL [facility] Comment: Fasting reference interval For someone without known diabetes, a glucose value >125 mg/dL indicates that they may have diabetes and this should be confirmed with a follow-up test. BUN 19 7 - 25 mg/dL [facility] Creatinine 0.81 0.50 - 1.03 mg/dL [facility] eGFR 86 > OR = 60 mL/min/1.7 3m2 [facility] BUN/creat ratio SEE NOTE: 6 - 22 (calc) [facility] Comment: Not Reported: BUN and Creatinine are within reference range. Sodium 143 135 - 146 mmol/L [facility] Potassium, pl 4.4 3.5 - 5.3 mmol/L [facility] Chloride 104 98 - 110 mmol/L [facility] CO2 31 20 - 32 mmol/L [facility] Calcium 9.0 8.6 - 10.4 mg/dL [facility] Protein, sr 6.5 6.1 - 8.1 g/dL [facility] Albumin 4.0 3.6 - 5.1 g/dL [facility] GLOBULIN 2.5 1.9 - 3.7 g/dL (calc) [facility] Alb/glob ratio 1.6 1.0 - 2.5 (calc) [facility] Bilirubin, total 0.2 0.2 - 1.2 mg/dL [facility] Alk phos 108 37 - 153 U/L [facility] AST 12 10 - 35 U/L [facility] ALT (SGPT) 15 6 - 29 U/L [facility] Blood 10/01/2023 10:2 0 AM CDT 10/01/2023 10:21 AM CDT us [facility] Nick Horn MD LAB BLOOD ORDERABLES Fi nal Result [facility] [address] [id number] * (ABNORMAL) Hemoglobin A1c (06/19/2023 7:41 AM SURG TECH) Pathologist [facility] Hgb A1C 7.3(H) 4.0 - 5.6 % [facility] Estimated Average Glucose 163 mg/dL [facility] Comment: The ADA recommends reporting an estimated Average Glucose (eAG) with all Hemoglobin A1c results using the equation derived from a study of 507 normal and diabetic adults. Minority populations were underrepresented and children were not included. (Diabetes Care 31:9806-9746, 2008). The eAG is not equivalent to a fasting glucose. Blood 06/19/2023 7:41 AM SURG TECH 06/19/2023 10:20 AM SURG TECH Esha Deluca NP LAB BLOOD ORDERABLES Final Result [facility] [address] Department [place] [address] * ThinPrep Pap (12/20/2013 10:15 AM CDT) Pathologist [facility] Thin Prep Pap Smear SEE BELOW () 12/27 9:58 AM CDT [facility] HISTORICAL RESULTS Comment: [employer] ThinPrep Cytology Final Report ThinPrep Pap Specimen Source Cervix/Endocervix Specimen Adequacy Satisfactory for interpretation, endocervical cells (transformation zone) present. Interpretation Negative for intraepithelial lesion or malignancy. 12/24/13 Civil Preparedness Officer: REJI Ivey(ASCP) Reviewed by: YENNY 12/27/13 Verified By: REJI Carbone(ASCP) electronic signature [facility], Department of Pathology For questions regarding this case, call ext. [phone] CPT Code(s) 47822 Clinical History LMP: UNK : N : N IUD: N Hormone Therapy: N Postmenopausal: N Previous surgery date and type: N Hysterectomy: N Chemotherapy: N MATTHEW Exposure: N Radiation: N Previous Abnormal Pap? Details: N Diagnostic or Screening Pap Test: Screening Performed by [facility], [address] [place] [id number] [email or web address], Ji Manzo MD - Lab. Director 12/20/2013 10:1 5 AM CDT 12/21/2013 10:08 AM CDT Connor Cedillo MD LAB PATHOLOGY ORDERABLE S Final Result [facility] HISTORICAL RESULTS from Last 3 Months or Most Recently Relevant to Health Maintenance Insurance ANTHEM ACCESS ANTHEM ACCESS Advance Directives For more information, please contact: [phone] * Full Code (Latest Code Status on File) Date Activated Date Inactivated Comments 06/24/2023 10:05 PM 07/01/2023 10:17 PM Care Teams Farmer Cash Grain Relationship Specialty Start Date End Date Saniya Schmitz NP PCP - General Family Medicine 12/09/22 Scar Crenshaw MD Surgeon Cardiothoracic Surgery 07/01/23 Miscellaneous, Not In File 07/01/23 Earl Horn MD Consulting Physician Interventional Cardiology 11/23/24
[2025-02-20 11:53] VITALS: BP 93/56; PULSE 72; RESP 18; TEMP 36.3; O2SAT 98
--- NOTE | 2025-02-20 12:03 | ED.EXTPRO ---
HPI - Extremity Problem General Chief complaint: Extremity Problem,Nontraumatic Stated complaint: RT Leg Pain patient presents accompanied by spouse for complaints pain and right thigh area that began 2 days ago. Patient believes that she was twisting and pulled something in this area. He has Tylenol without relief of symptoms. Denies any swelling, increased numbness/ tingling bruising, redness to the area. Related Data Home Medications ?Medication ?Instructions ?Recorded ?Confirmed ?Last Taken ?Type aspirin 81 mg tablet,delayed 81 mg PO DAILY 07/23/19 02/20/25 1 Day Ago History release ~06/17/23 cholecalciferol (vitamin D3) 50 4,000 unit PO DAILY 02/16/21 02/20/25 1 Day Ago History mcg (2,000 unit) capsule ~06/17/23 lisinopril 20 mg tablet 20 mg PO DAILY 10/08/23 02/20/25 Unknown History famotidine 20 mg tablet (Pepcid) 20 mg PO BID 01/28/24 02/20/25 Unknown History Mentanx BYMOUTH 07/28/24 12/27/24 Unknown History evolocumab [Repatha SureClick] subcut 07/28/24 12/27/24 Unknown History Allergies Allergy/AdvReac Type Severity Reaction Status Date / Time No Known Allergies Allergy Unknown NONE Verified 02/20/25 11:52 Review of Systems Constitutional: Constitutional: Reports as per HPI, Denies chills, Denies fatigue, Denies fever(s) and Denies weakness Eyes: Eyes: Reports no additional eye complaints Cardiovascular: Cardiovascular: Reports no additional cardiovascular complaints Respiratory: Respiratory: Reports no additional respiratory complaints Gastrointestinal: Gastrointestinal: Reports as per HPI, Denies abdominal pain, Denies diarrhea, Denies nausea and Denies vomiting Genitourinary: Genitourinary: Reports as per HPI, Denies nocturia, Denies dysuria, Denies flank pain, Denies urinary incontinence and Denies vaginal discharge Musculoskeletal: Musculoskeletal: Reports as per HPI, Denies myalgias, Reports arthralgias, Denies joint swelling and Denies muscle cramps Integumentary/Breasts: Skin/Breast: Reports as per HPI, Denies pruritus, Denies erythema and Denies rash Neurologic: Reports as per HPI, Denies headache(s), Denies focal weakness, Denies numbness and Denies weakness Psychiatric: Psychiatric: Reports no additional psychiatric complaints Endocrine: Endocrine: Reports no additional endocrine complaints Hematologic/Lymphatic: Hematologic/Lymphatic: Reports no additional hematologic/lymphatic complaints Allergic/Immunologic: Allergic/Immunologic: Reports no additional allergic/immunologic complaints PMFSH Past Medical History Medical History Insomnia BMI 29.0-29.9,adult CAD (coronary artery disease) Small fiber neuropathy Dysuria Chronic pain Peripheral neuropathy BMI 31.0-31.9,adult History of anesthesia complications Difficulty waking up after Elbow tendonitis Atherosclerotic heart disease of [place] coronary artery without angina pectoris (06/11/12) acute posterior lateral [place] with occlusion of the posterior lateral branch of the RCA stented with drug-eluting stent. Neuropathy Breast cancer screening BMI 30.0-30.9,adult Hyperlipidemia GERD (gastroesophageal reflux disease) Vitamin D deficiency Hypertension History of heart attack 2002 w/stent placement 2023 - quadruple bypass COPD (chronic obstructive pulmonary disease) Surgical History Surgical History History of quadruple bypass Family History Family History Father Family history of alcoholism, Onset Age: 37 Mother Patient's mother is in good health Social History Social History Smoking packs per day: 1 Smoking cigarettes per day: 20.0 Years smoked: 37 Smoking pack-years: 37.00 Smoking status: Former smoker Tobacco type: cigarettes Second hand tobacco smoke exposure: No ( also quit apx same time) Smoking end date: 06/23/23 Alcohol intake: never Substance use: never Substance use type: does not use Do You Feel Safe in your Home?: Yes Lack of Transportation: No Lack of Food: Never True Current Housing: I Have Housing Concerned About Future Housing: No Difficulty Paying Gas/Electric Bills: No Difficulty Paying for Meds: No Currently Unemployed: No Education: Decline to Answer Difficulty w/ Childcare or Family Care: No Gender identity (if verbalized by the patient): Female Spiritual care concerns: No Exam Const: General: healthy appearing and no acute distress Nutritional Appearance: well nourished Orientation/consciousness: patient oriented x3 Limitations: no limitations Resp: Effort & Inspection: normal respiratory effort Auscultation: clear to auscultation bilaterally Cardio: Rate: regular rate Rhythm: regular rhythm GI: Inspection: non-distended GI Palp: Yes Soft to palpation, No Tenderness to palpation present (GI), No Guarding due to palpation present (GI), No Rigid due to palpation, No Hernia present and No Rebound tenderness present Auscultation: normal bowel sounds : General: Yes bladder normal to palpation and Yes no CVA tenderness Back/Spine/Pelvis: Back: no CVA tenderness Cervical Spine: No collar present Other: No lumbar vertebral tenderness, no paraspinal tenderness. No SI joint tenderness. No pain with pelvic compression Skin: General skin exam: normal color Rashes: no rashes Wounds: no wounds Neuro: General: patient oriented x3 and moves all extremities Speech: normal speech Gait exam (Neuro): gait abnormal ( limited by pain) Extrem: Right lower extremity: hip/thigh Details: normal to inspection, tenderness ( anterior thigh, inguinal area) and abnormal ROM; inspection normal, no swelling, ROM abnormal, no abrasions, no lacerations, no ecchymosis, no crepitus, no foreign bodies, no penetrating wound, no deformity and no unusual warmth Psych: Mental Status: mental status grossly normal Affect: normal affect Attitude: cooperative Course Course Level of Care: Express Care Visit Vital Signs Vital signs: Vital Signs Temperature 97.4 F L 02/20/25 11:53 Pulse Rate 72 02/20/25 11:53 Respiratory Rate 18 02/20/25 11:53 Blood Pressure 93/56 L 02/20/25 11:53 Pulse Oximetry 98 02/20/25 11:53 Oxygen Delivery Room Air 02/20/25 11:53 Temperature 97.4 F L 02/20/25 11:53 Pulse Rate 72 02/20/25 11:53 Respiratory Rate 18 02/20/25 11:53 Blood Pressure 93/56 L 02/20/25 11:53 Pulse Oximetry 98 02/20/25 11:53 Oxygen Delivery Room Air 02/20/25 11:53 Discharge Plan Discharge Clinical Impression: Strain of muscle of right groin region Patient Disposition: Home Condition: Stable Instructions: Antibiotic Form, Groin Strain (ED) Additional Instructions: This is likely muscular in nature recommended resting for 2 days then begin applying heat for 20 minutes then gentle range of motion or massaged then ice for 20 minute several times per day. may use the sling as needed to get extra support take ibuprofen or naproxen as directed consistently this will help with inflammation. May use the muscle relaxers as needed this can make you drowsy do not drive, drink alcohol or operate heavy machinery while taking this medication. Follow-up with primary care physician within the next week if symptoms not improved if you notice any significant numbness, tingling, weakness, or neck pain follow-up with emergency room for immediate evaluation. Patient Language: Polish Prescriptions: New naproxen 500 mg tablet 500 mg PO BID PRN (Reason: pain) Qty: 30 0RF methocarbamol 750 mg tablet 750 mg PO TID Qty: 30 0RF No Action evolocumab [Repathvineet [place]] subcut Patient Comments: per city clerk Ally ROJAS duloxetine 60 mg capsule,delayed release(DR/EC) 60 mg PO DAILY Qty: 90 3RF montelukast 10 mg tablet 10 mg PO DAILY 90 Days Qty: 90 3RF Gvoke HypoPen 2-Pack 1 mg/0.2 mL auto-injector 1 mg subcut ONCE Qty: 0.4 4RF Rx Instructions: may repeat once after 15 minutes if no response aspirin 81 mg tablet,delayed release (DR/EC) 81 mg PO DAILY cholecalciferol (vitamin D3) 50 mcg (2,000 unit) capsule 4,000 unit PO DAILY lisinopril 20 mg tablet 20 mg PO DAILY famotidine [Pepcid] 20 mg tablet 20 mg PO BID albuterol sulfate [ProAir HFA] 90 mcg/actuation HFA aerosol inhaler 1 inh INHALATION Q4-6H PRN (Reason: shortness of breath or wheezing) Qty: 25.5 1RF (DME) lancets [OneTouch Delica Lancets] 30 gauge misc See Rx Instructions .Route Qty: 300 3RF Rx Instructions: use to check blood glucose 3 times daily omeprazole 20 mg capsule,delayed release(DR/EC) 20 mg PO DAILY Qty: 90 3RF (DME) blood-glucose meter [SENSIMEDuch Ultra2 Meter] Misc See Rx Instructions .Route Qty: 1 0RF Rx Instructions: use to check blood sugar 3 times daily clopidogrel 75 mg tablet 75 mg PO DAILY Qty: 90 3RF fluticasone furoate-vilanterol [Breo Ellipta] 100-25 mcg/dose blister with device See Rx Instructions .ROUTE .COMPLEX Qty: 60 5RF Dose Instruction: INHALE 1 PUFF BY MOUTH DAILY. RINSE MOUTH AND SPIT AFTER EACH USE Rx Instructions: INHALE 1 PUFF BY MOUTH DAILY. RINSE MOUTH AND SPIT AFTER EACH USE ezetimibe 10 mg tablet 10 mg PO DAILY Qty: 90 3RF Ozempic 2 mg/dose (8 mg/3 mL) pen injector 2 mg subcut WEEKLY Qty: 9 3RF gabapentin 300 mg capsule 900 mg PO TID 90 Days Qty: 810 3RF (DME) Dexcom G7 [facility] Inspector Misc See Rx Instructions .Route Qty: 1 0RF Rx Instructions: Use to monitor BS dapagliflozin propanediol [Farxiga] 10 mg tablet 10 mg PO QAM Qty: 90 2RF glimepiride 2 mg tablet 2 mg PO QAM Qty: 90 11RF Rx Instructions: take with glimepiride 4mg tab to equal 6mg daily glimepiride 4 mg tablet 4 mg PO QAM Qty: 90 3RF Rx Instructions: take with 2mg tab to equal 6mg daily (DME) Dexcom G7 Sensor Device See Rx Instructions .Route Qty: 9 1RF Rx Instructions: change every 10 days (DME) OneTouch Ultra Test Strip See Rx Instructions .Route Qty: 300 3RF Rx Instructions: use to check blood sugar 3 times daily eszopiclone [Lunesta] 2 mg tablet 2 mg PO QHS Qty: 90 1RF (DME) pen needle, diabetic [Laila 2nd Gen Pen Needle] 32 gauge x 5/32 needle See Rx Instructions .Route Qty: 100 1RF Rx Instructions: use to administer insulin once daily insulin degludec [Tresiba FlexTouch U-200] 200 unit/mL (3 mL) insulin pen 24 unit subcut DAILY Qty: 18 1RF Follow-up/Referrals: Saniya Schmitz NP [Primary Care Provider, Family Practice] Time of Disposition: 12:11
== END 2025-02-20 12:12 | disposition home or self-care (01) ==
PROVIDERS: Emergency Provider Nurse Practitioner Family; PCP Nurse Practitioner Family
DX: S39.011A Strain of muscle, fascia and tendon of abdomen, initial encounter (principal); X50.1XXA Overexertion from prolonged static or awkward postures, initial encounter; I25.10 Atherosclerotic heart disease of native coronary artery without angina pectoris; E78.5 Hyperlipidemia, unspecified; K21.9 Gastro-esophageal reflux disease without esophagitis; E55.9 Vitamin D deficiency, unspecified; I10 Essential (primary) hypertension; J44.9 Chronic obstructive pulmonary disease, unspecified; Z95.1 Presence of aortocoronary bypass graft; Z95.818 Presence of other cardiac implants and grafts; Z87.891 Personal history of nicotine dependence
CPT/HCPCS: 99213; G0463